=== PATIENT | male | born 1965 | race Caucasian/White ===

== ENCOUNTER 2018-12-09 06:50 | Day surgery (SDC) | payer OTHER, SELFPAY ==
[2018-12-04 10:16] VITALS: BP 124/78; PULSE 70; RESP 18; TEMP 37; BMI 21.5
[2018-12-09 06:57] VITALS: BP 129/76; PULSE 68; RESP 18; TEMP 36.1; O2SAT 100; BMI 20.7
[2018-12-09 07:48] LABS: ALB/GLOB Ratio 1.2 RATIO (0.9-2.4); AST(SGOT) 20 U/L (15-37); Alanine Aminotransfer ALT/SGPT 21 U/L (16-61); Albumin, Serum 4.1 g/dL (3.2-5.0); Alkaline Phosphatase 69 U/L (45-117); Anion Gap 8 (5-15); BUN 10 mg/dL (7-18); BUN/Creat Ratio 10.7 RATIO (10-20); Calcium,Total 8.9 mg/dL (8.5-10.1); Chloride 107 mmol/L (98-107); Cholesterol 185 mg/dL (200); Creatinine, Serum 0.93 mg/dL (0.70-1.30); EST Glomerular Filtration Rate 90 mL/min (>60); Est Glom Filt Rate - Afr Amer 108 mL/min (>60); Estimated Creatinine Clearance 84.47 ml/min; Globulin 3.4 g/dL (2.2-4.2); Glucose 80 mg/dL (74-106); High Density Lipoprotein 85 mg/dL; Potassium 3.6 mmol/L (3.5-5.1); Protein, Total 7.5 g/dL (6.4-8.2); Sodium Level 140 mmol/L (136-145); Triglycerides 171 mg/dL; Very Low Density Lipoprotein 34 mg/dL (5-40)
[2018-12-09 08:12] VITALS: BP 112/75; BP 129/76; PULSE 70; RESP 16; TEMP 36.4; O2SAT 98
--- NOTE | 2018-12-09 08:12 | OP.ENDO_ITS ---
12/09/2018 M[address] Correia [address] [place] [address] Re : Colonoscopy procedure for Chay Gaines Dear Dr. Correia This procedure was performed on Sunday, December 09, 2018. My impressions and recommendations are as follows: Impressions : - The entire examined colon is normal on direct and retroflexion views. - No specimens collected. Recommendations : - Discharge patient to home. - Resume previous diet. - Continue present medications. - Repeat colonoscopy in 10 years for screening purposes. My findings are described in the full procedure note, which is enclosed. If I can be of further assistance, please feel free to contact me at Doctor phone number(s): , Work: . Sincerely, Ronaldo Landaverde MD 12/09/2018 8:12:17 AM This report has been signed electronically.
[2018-12-09 08:15] VITALS: BP 117/77; BP 129/76; PULSE 69; RESP 18; O2SAT 98
[2018-12-09 08:20] VITALS: BP 124/82; BP 129/76; PULSE 72; RESP 18; O2SAT 100
[2018-12-09 08:25] VITALS: BP 125/87; BP 129/76; PULSE 76; RESP 18; TEMP 36.5; O2SAT 100
[2018-12-09 08:28] VITALS: BP 129/76
--- NOTE | 2018-12-10 09:40 | H&P.OPEN ---
History of Present Illness Date of Admission: 12/10/18 The patient is a 53 year old M presented for screening colonoscopy. His last colonoscopy was 10 years ago and no polyps were found. Patient denies any abdominal pain or blood in his stool. Patient denies family history of colon cancer. Past Medical/Surgical History - Planned Operation Planned Operative Procedure/s: colonoscopy Date of Operative Procedure: 12/09/18 Permit Signed: No S.O.S: No Is This Patient Having a Total Joint: No - Previous Hospitalizations/Surgeries HX Hospitalizations: Yes HX of Surgeries: eye trauma as child Any Problems With Anesthesia: No You/Your Family Experience Fever (Hyperthermia) With Anes: No Cholinesterase deficiency: No - Cardiovascular Hx Chest Pain within Last 2 months: No Hx of Irregular Heartbeat and/or Afib: No Hx Heart Attack: No Hx Congestive Heart Failure: No Hx Rheumatic Fever: No Hx Hypertension: No Hx Internal Defibrillator: No Hx Pacemaker: No Hx Cardiac Catheterization: No Hx Cardiac Surgery/Stents/Etc.: No Hx Stress Test: Yes - 2018 HX Edema: No Hx Pain in Legs when Walking/Leg Cramps: No - Respiratory Chronic Cough: No HX of Shortness of Breath: No Hoarseness: No Hx Chronic Obstructive Pulmonary Disease (COPD): No Hx Asthma: No Hx Emphysema: No Hx Sleep Apnea: No Hx Oxygen Use at Home: No Hx Respiratory Tract Infection/Cold (presently): No Do You Snore Loudly (louder than talking or can be heard): No Do You Often Feel Tired/ Fatigued/ Sleepy Dring Daytime?: No Has Anyone Observed You Stop Breathing During Sleep?: No Result (for STOP score): Negative Hx Smoking: Yes Smoking Status: Current every day smoker - Gastrointestinal Hx Gastroesophageal Reflux: No Hx Gastrointestinal Disorders: Yes - diarrhea Hx Gastrointestinal Bleed: No Hx Ulcer: No Hx Hiatal Hernia: No Difficulty Chewing/Swallowing: No Recent Onset of Swallowing Problems: No Special diet followed at home: No Hx Unplanned Weight Loss of 20#: No HX Unplanned Weight Gain of 20#: No - Neurological Hx Seizures: No HX Syncope/Blackout Spells/Unconsciousness: No Hx CVA/Stroke: No Hx Transient Ischemic Attacks (TIA): No Hx Multiple Sclerosis: No Hx Parkinson's Disease: No Hx Head/Neck Injury: No Hx Headaches: No Hx Back Injury/Pain: No Recent Onset of Speech Difficulty: No Restless Legs: No Does patient have nerve stimulator: No Patient instructed to have device shut off: No Rep notified?: No - Blood Disorder Hx Leukemia: No Bleeding Tendencies: No Hx Deep Vein Thrombosis: No Hx High Cholesterol: No Blood Transmitted Disease: No Hx Hepatitis: No Hx Cirrhosis: No Hx Anemia: No Hx Blood Disorders: No - Genitourinary Hx Renal Disease: No - Musculoskeletal Hx Arthritis: Yes Hx Rheumatoid Arthritis: No Hx Gout: No Recent Onset of an Orthopedic Problem: No - Endocrine Hx Diabetes: No Thyroid Disease: No Hx Steroid Therapy: No - Psycho/Social Hx Substance Use: No Hx Alcohol Use: Yes - 6-12 beers a day Hx Anxiety: No Hx Depression: No Mental Illness: No Hx Dementia: No - Miscellaneous Hx Cancer: No Recent Exposure to Contagious Disease: No Active MRSA: No Hx of C-Diff: No Any Loose Teeth: No Allergies No Known Allergies Allergy (Verified 12/04/18 10:15) - Discharge Is Pt Admitted From a Longterm, or a Senior Care: No Who Depends On You At Home: Who Could Help: After D/C, Where Do you Plan to Go: Return Home - Physical Exam General: Alert, Oriented x3 Lungs: Normal air movement Cardiovascular: Regular rate, Regular Rhythm Abdomen: Soft, Non Tender, Non-Distended Vital Signs Temp Pulse Resp BP Pulse Ox 97.7 F L 76 18 125/87 H 100 12/09/18 08:25 12/09/18 08:25 12/09/18 08:25 12/09/18 08:25 12/09/18 08:25 Oxygen Delivery Method Room Air Weight: 145 lb Body Mass Index (BMI) 20.7 Intake and Output for Last 24 Hours 12/08/18 12/09/18 12/10/18 23:59 23:59 23:59 Intake Total 900 / 900 Balance 900 / 900 Assessment/Plan 53-year-old male screening colonoscopy 1. I explained endoscopy in detail to the patient. I explained the risks including but not limited to stroke or heart attack with anesthesia, perforation of the GI tract, bleeding, infection. I explained that any of these could necessitate further emergency surgery. The patient understands and all questions were answered sufficiently. The patient wishes to proceed with procedure. Ronaldo Landaverde MD Pager: [facility] [address] [place] [address], [address] [place] [address] Office: Surgery Risks - Colonoscopy Risks Include but are not Limited To: Risks include but are not limited to: Bleeding, perforation requiring further surgery, inability to complete colonoscopy requiring barium enema.
== END 2018-12-09 08:33 | disposition home or self-care (01) ==
LOC: EN 06:52 → AC 06:54
PROVIDERS: Family Provider Family Medicine; PCP Family Medicine; Referring Provider Surgery; Visit Provider Surgery
PROC: 0DJD8ZZ Inspection of Lower Intestinal Tract, Via Natural or Artificial Opening Endoscopic (ICD-10-PCS; CPT 45378; principal; 2018-12-09 07:40)
DX: Z12.11 Encounter for screening for malignant neoplasm of colon (principal); R19.7 Diarrhea, unspecified; M19.90 Unspecified osteoarthritis, unspecified site; F17.200 Nicotine dependence, unspecified, uncomplicated
CPT/HCPCS: 45378; 36415; 80053; 80061; J7120

== ENCOUNTER 2019-06-01 13:30 | Outpatient (RCR) | payer SELFPAY ==
[2019-04-29 15:33] VITALS: BMI 21.8
--- NOTE | 2019-07-09 09:49 | HP.PT.NRP ---
HP - Discharge Summary (1) - Patient Information ADELITA ISLAS was seen in my office for initial evaluation on . The following Plan of Care was established for this patient: This patient was last seen in our office . Pertinent comments regarding their Physical therapy will appear below: At this point I will be discontinuing this patient from physical therapy. I would be happy to see this patient again in the future if found appropriate by the physician. Thank you! MICHAEL AnthonyT
== END 2019-06-01 19:00 | disposition home or self-care (01) ==
LOC: PT 13:30
PROVIDERS: Family Provider Family Medicine; PCP Family Medicine
DX: R69 Illness, unspecified (principal)

== ENCOUNTER → 2021-04-12 14:48 | Outpatient (CLI) | payer OTHER, SELFPAY ==
[2020-05-10 08:19] VITALS: BMI 21.8
--- NOTE | 2021-04-12 15:01 | CT_ITS ---
STUDY: LOW DOSE CT LUNG CANCER SCREENING REASON FOR EXAM: Male, 55 years old. The patient smoked 1.5 packs per day for 20 years. RADIATION DOSAGE (If Supplied By Facility): CTDIvol = ( 3.02 ) mGy, DLP = ( 104.58 ) mGycm TECHNIQUE: No contrast was administered. Low dose technique was utilized (average mAS-38 and kVp 120). 1.25 mm axial source images with a slice interval of 1.25-mm were reconstructed in lung windows. 2.5 mm axial source images with a slice interval of 2.5-mm were reconstructed in lung windows. 5.0 mm axial source images with a slice interval of 5.0-mm were reconstructed in soft tissue windows. Nodule measured using lung windows on PACS and/or independent workstation with automated measurement of minimum and maximum diameter. Nodule measurement reported as average diameter rounded to the nearest whole number. Growth is defined as an increase ins size of greater than 1.5 mm. COMPARISON: None. NODULES: No suspicious nodules are seen. Emphysema: Emphysematous changes with bullous formation in the upper lobes. Mild bilateral apical scarring. Endobronchial lesion: None Aorta: Mild atherosclerotic plaque at the level of the aortic arch. Coronary arteries: Coronary artery calcification. Heart: Unremarkable. Pulmonary artery: Unremarkable. Mediastinal nodes: Small benign-appearing axillary lymph nodes. Other chest and abdominal findings: CT/Low Dose CT Lung Screening IMPRESSION: Lung-RADS category 2 - Continue annual screening with LDCT in 12 months. IMPORTANT NOTES FOR USE: ACR Lung-RADS Version 1.1 Assessment Categories Release Date: 2018 Category: Coded 0-4 bases on nodule(s) with highest degree of suspicion. Negative screen is defined as categories 1 and 2; a positive screen is defined as categories 3 and 4. Category 3 and 4A nodules that are unchanged on interval CT should be coded as category 2, and individuals returned to screening in 12 months. Category 4X: Category 3 or 4 nodules with additional imaging findings that increase the suspicion of lung cancer, such as spiculation, GGN that doubles in size in 1 year, enlarged lymph notes, etc. Category Modifiers: S (significant finding unrelated to lung cancer) Electronically Signed: Suhail Trent MD at 12:41 EDT , Service support ,
[2021-04-12 16:18] LABS: Absolute Lymphocyte Count 1.62 X10^3/uL (0.83-4.51); Absolute Neutrophil Count 4.3 X10^3/uL (2.0-7.7); Basophil# 0.06 X10^3/uL; Basophil% 0.9 % (0-1); Eosinophil# 0.13 X10^3/uL; Eosinophils% 1.9 % (0-5); Hematocrit 42.7 % (40-54); Hemoglobin 14.2 g/dL (13.0-16.5); Lymphocyte # 1.62 X10^3/ul (0.83-4.51); Mean Corp Hgb Conc 33.3 g/dL (32-36); Mean Corpuscular Hgb 32.5 pg (27.0-32.0); Mean Corpuscular Volume 97.7 fL (80-94); Mean Platelet Vol. 9.4 fl (6.2-12.0); Monocyte# 0.62 X10^3/uL; Monocyte% 9.2 % (0-10); NRBC Flagged by Analyzer 0 % (0-5); Neutrophil # 4.26 X10^3/uL (2.7-7.7); Neutrophil % 63.3 % (47-70); Platelet Count 279 K/mm3 (150-450); RBC Distribution Width CV 13.6 % (11.6-14.6); RBC Distribution Width SD 48.8 fl (35.1-43.9); Red Blood Count 4.37 M/mm3 (4.6-6.2); White Blood Count 6.7 K/mm3 (4.4-11.0)
[2021-04-12 16:31] LABS: ALB/GLOB Ratio 1.1 RATIO (0.9-2.4); AST(SGOT) 18 U/L (15-37); Alanine Aminotransfer ALT/SGPT 20 U/L (16-61); Albumin, Serum 3.6 g/dL (3.2-5.0); Alkaline Phosphatase 73 U/L (45-117); Anion Gap 5 (5-15); BUN 10 mg/dL (7-18); BUN/Creat Ratio 12.8 RATIO (10-20); Calcium,Total 8.4 mg/dL (8.5-10.1); Chloride 109 mmol/L (98-107); Cholesterol 174 mg/dL (200); Creatinine, Serum 0.78 mg/dL (0.70-1.30); EST Glomerular Filtration Rate 109 mL/min (>60); Est Glom Filt Rate - Afr Amer 131 mL/min (>60); Globulin 3.4 g/dL (2.2-4.2); Glucose 93 mg/dL (74-106); High Density Lipoprotein 69 mg/dL; Potassium 4.3 mmol/L (3.5-5.1); Sodium Level 139 mmol/L (136-145); Triglycerides 60 mg/dL; Very Low Density Lipoprotein 12 mg/dL (5-40)
== END ==
PROVIDERS: PCP Family Medicine; Referring Provider Family Medicine; Visit Provider Family Medicine
DX: Z00.00 Encounter for general adult medical examination without abnormal findings (principal); Z12.2 Encounter for screening for malignant neoplasm of respiratory organs; Z13.220 Encounter for screening for lipoid disorders; Z87.891 Personal history of nicotine dependence
CPT/HCPCS: 36415; 71271; 80053; 80061; 85025

== ENCOUNTER → 2022-04-16 | Outpatient (CLI) | payer OTHER, SELFPAY ==
[2022-04-16 18:00] LABS: Hematocrit 44.4 % (40-54); Hemoglobin 14.8 g/dL (13.0-16.5); Mean Corp Hgb Conc 33.3 g/dL (32-36); Mean Corpuscular Volume 98.9 fL (80-94); Mean Platelet Vol. 9.8 fl (6.2-12.0); Platelet Count 297 K/mm3 (150-450); RBC Distribution Width CV 13.6 % (11.6-14.6); RBC Distribution Width SD 49.5 fl (35.1-43.9); Red Blood Count 4.49 M/mm3 (4.6-6.2); White Blood Count 6.2 K/mm3 (4.4-11.0)
[2022-04-16 18:25] LABS: AST(SGOT) 19 U/L (15-37); Alanine Aminotransfer ALT/SGPT 26 U/L (16-61); Albumin, Serum 3.6 g/dL (3.2-5.0); Alkaline Phosphatase 93 U/L (45-117); Anion Gap 6 (5-15); BUN 11 mg/dL (7-18); BUN/Creat Ratio 13.5 RATIO (10-20); Calcium,Total 8.8 mg/dL (8.5-10.1); Chloride 107 mmol/L (98-107); Creatinine, Serum 0.82 mg/dL (0.70-1.30); EST Glomerular Filtration Rate 103 mL/min (>60); Est Glom Filt Rate - Afr Amer 125 mL/min (>60); Globulin 3.6 g/dL (2.2-4.2); Glucose 106 mg/dL (74-106); PSA,Total - Annual Screen 1.06 ng/mL (0.00-4.00); Potassium 4.2 mmol/L (3.5-5.1); Protein, Total 7.2 g/dL (6.4-8.2); Sodium Level 138 mmol/L (136-145)
[2022-04-17 14:30] LABS: Ferritin 123 ng/mL (26-388)
[2022-04-17 14:31] LABS: Vitamin B12 214 pg/mL (211-911)
== END | disposition home or self-care (01) ==
LOC: MFPLAB 15:05
PROVIDERS: PCP Family Medicine; Visit Provider Nurse Practitioner Family
DX: D64.9 Anemia, unspecified (principal); F10.10 Alcohol abuse, uncomplicated; Z12.5 Encounter for screening for malignant neoplasm of prostate
CPT/HCPCS: 84153; 36415; 80053; 82607; 82728; 85027; G0103

== ENCOUNTER → 2022-07-26 | Outpatient (CLI) | payer MEDICAID, SELFPAY ==
--- NOTE | 2022-07-26 17:49 | MRI_ITS ---
STUDY: MRI LEFT HIP REASON FOR EXAM: Male, 56 years old. HIP PAIN TECHNIQUE: Standardized fat and water weighted pulse sequences were obtained in all 3 orthogonal planes. COMPARISON: X-ray 08/06/2021 FINDINGS: Normal hip joint without articular joint space narrowing. Normal acetabulum. Normal labrum. Normal femoral head. Normal femoral neck and intratrochanteric region. Mild gluteal tendinosis and peritendinitis as. There is no trochanteric, iliopsoas or iliopectineal bursitis. Normal superior and inferior pubic rami. Edema about the pubic symphysis consistent with pubic symphysitis. Normal ischial tuberosity. Normal origin of the hamstring tendons. Normal visualized iliac wing, sacroiliac joint, and sacral ala. Normal visualized soft tissue structures of the pelvis. MRI/Lower Ext Joint Only (Routine) IMPRESSION: 1. Mild gluteal tendinosis and peritendinitis as. 2. Pubic symphysitis. Electronically Signed: Chay Alvarado MD at 22:23 EDT ,
== END | disposition home or self-care (01) ==
LOC: MRI 17:41
PROVIDERS: PCP Family Medicine; Referring Provider Anesthesiology Pain Medicine; Visit Provider Anesthesiology Pain Medicine
DX: M16.12 Unilateral primary osteoarthritis, left hip (principal)
CPT/HCPCS: 73721

== ENCOUNTER 2022-09-27 14:30 | Outpatient (RCR) | payer OTHER, SELFPAY ==
--- NOTE | 2022-08-19 15:58 | HP.PTEVAL ---
Patient's Visit Information ADELITA ISLAS is a 57 year old M referred to Physical Therapy by Dr. Polo Dennis MD with a diagnosis of L HIP PAIN AND ABNORMAL GAIT. Date of Evaluation: 08/19/22 Physical Therapist: Dayna Denson PT, Cert MDT - Visit Plan Frequency: 2-3x /Week Duration: 4-6 Weeks Plan: *CHECK AUTH: RECORD # OF VISITS APPROVED AND EXPIRATION DATE. CHECK CODES APPROVED WITH POC*. CORE AND GLUT STRENGTHENING PROGRESSION WITHOUT INCREASING PAIN. LEE LE ROM, STRETCHING AND STRENGTHENING. 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 SOME LIFTING. Present symptoms: L LATERAL HIP AND PROXIMAL THIGH PAIN. DENIES L LE NUMBNESS AND TINGLING FOR THE LAST FEW WEEKS. SOMETIMES R HIP HURTS TOO WHICH STARTED ABOUT A WK AGO AND DR. SUAREZ IS AWARE AND PATIENT STATES DR. SUAREZ FEELS THE RIGHT SIDE STARTED HURTING DUE TO COMPENSATING FOR THE LEFT HIP PAIN. PATIENT REPORTS BOTH HIPS DON'T USUALLY HURT AT THE SAME TIME - ONE OR THE OTHER HURT. Present since: A YEAR AGO. Pain Scale: WORST 8/10 (BRIEF AND FLEETING), LEAST 1-2/10. Currently: 4/10. Is it getting better, worse or staying the same: STAYING THE SAME. Commenced as a result of: NO APPARENT REASON OTHER THAN POSSIBLY FROM LIFTING A MACHINE. STARTED HURTING A DAY OR TWO LATER. Symptoms at onset: L LATERAL HIP. Worse: QUICK LATERAL MOVE WITH LLE TO THE LEFT, ROLLING OVER SLEEPING. SOMETIMES GETTING IN/OUT OF CAR. SITTING ON THE COUCH. Better: PAIN MEDICINE (RELAFEN - STARTED ABOUT A WK AGO), WALKING STRAIGHT - BETTER ON THE MOVE. HEAT. Disturbed sleep: YES. Previous history/Previous treatment: UNREMARKABLE PRIOR TO THIS ONSET ABOUT A YEAR AGO. Treatment this episode: MEDICINE, [facility] 4 OR 5 TIMES AGO A FEW MONTHS AGO WITH TEMPORARY RELIEF. CONSULT WITH DR. KENDRICK - WAS GIVEN HOME EX'S THEY NEVER REALLY FELT GOOD. PAIN DIDN'T GO AWAY SO WENT TO [facility] AND NOW DR. SUAREZ. HAS SEEN DR. SUAREZ TWICE IN THE LAST 6-[address] SUAREZ DID NOT RECOMMEND INJECTION AND ORDERED PT. DR. SUAREZ ALSO ORDERED MRI. HAS NOT HAD SPINE SURGEON CONSULT OR BACK IMAGING (NO BACK MRI OR BACK X-RAY). TRIED STEROID DOSE PACK ORDERED BY DR. SUAREZ WITHOUT BENEFIT PER PATIENT REPORT. CURRENT ANTI-INFLAMMATORY DOES SEEM TO BE HELPING THOUGH. Coughing/sneezing/straining: NEGATIVE. Gait: JUST A LITTLE BIT LIMPING. THE MORE I WALK THE BETTER IT FEELS. Bowel or Bladder Dysfunction: NO. Accidents: NO. Unexplained weight loss: NO. Imagin07/26/22 L HIP MRI ([facility] EMR): IMPRESSION: 1. Mild gluteal tendinosis and peritendinitis as. 2. Pubic symphysitis. PELVIC AND L HIP X-RAY 2020: STUDY: X-RAY - PELVIS AND LEFT HIP. REASON FOR EXAM: Male, 55 years old. LEFT HIP PAIN, NKI RADIATES DOWN. LEG. TECHNIQUE: XR Hip Unilateral with Pelvis when performed; 2-3 Views. COMPARISON: None. . FINDINGS: There is a non-specific bowel gas pattern. Normal visualized soft tissue. structures. Normal bilateral iliac wings, sacroiliac joints and visualized sacrum. Normal bilateral superior and inferior pubic rami. Normal pubic symphysis. Normal bilateral ischial tuberosities. There are osteoarthritic changes of the femoral head with marginal. osteophyte formation. There is osteoarthritic spur formation of the. acetabular rim. There is mild articular joint space narrowing of the hip. . RAD/HIP, UNI W/ Pelvis 2-3 Views. IMPRESSION: Degenerative findings of both hips. . Electronically Signed: Sabas Capps MD. at 14:25 EST. . PMH/Recent major surgery: OTHERWISE IN [facility]. - Objective Sitting/Standing Posture: POOR. REDUCED LORDOSIS. NO RELEVENT LATERAL SHIFT. Active Correction of posture: BETTER. Other Observations: Trendelenburg Gait. Indep without AD and no LOB. INDEP TRANSFER SIT TO STAND WITHOUT UE ASSIST FAVORING R LE AND WITH MILD INCREASED L HIP PAIN. C/O L HIP PAIN TRANSFERES SIT TO SUPINE, SUPINE TO SIT AND ROLLING SUPINE TO PRONE. TIGHT LEE QUADS. Sensory deficit: LEE LE LIGHT TOUCH SENSATION GROSSLY INTACT AND SYMMETRICAL. ROM deficit: LEFT HIP IR TIGHTNESS COMPARED TO RIGHT AND PAIN AT THE END OF THE AVAILABLE ROM. APPROX 50% DECREASED L HIP ABD COMPARED TO RIGHT. TIGHT LEE HS'S AND GASTROC SOLEUS COMPLEX'S. Motor deficit: RIGHT LE 5/5. L HIP EXT 4/5, FLEX 4/5, L HIP ABD 4-/5. L KNEE AND ANKLE 5/5. Dural Signs: NEGATIVE LEE LE'S. Lumbar mvmt loss: flex - NIL. ext - LYNDSEY - INCREASES L LB/HIP PAIN. R SG - LYNDSEY. L SG - LYNDSEY - INCREASES L LB/HIP PAIN. Core strength: FAIR. Palpation: MILD L GLUT TENDERNESS. TREATMENT: NEUROMUSCULAR REEDUCATION - RETRAINING OF MVMT AND POSTURE FOR SITTING, LYING AND STANDING ACTIVITIES. - Balance/Special Test Scores Lower Extremity Functional Score: 51 - Goals Goal 1:: DECREASE C/O L HIP PAIN Goal Time Frame: 4-6 Weeks Goal 2:: INCREASE FUNCTIONAL ROM OF LEE LE'S TO EASE ADL'S. Goal Time Frame: 4-6 Weeks Goal 3:: INCREASE FUNCTIONAL STRENGTH OF L HIP TO ALLOW FOR RETURN TO PRIOR LEVEL OF FUNCTION. Goal Time Frame: 4-6 Weeks Goal 4:: PATIENT WILL BE INDEP WITH A HEP FOR CONTINUED IMPROVEMENT ONCE FORMAL PHYSICAL THERAPY CONCLUDES. Goal Time Frame: 6-8 Weeks - Anticipated Interventions Patient/Client Instruction: Educate patient on: Condition, Plan of Care, Risk Factors For the Purpose of:: To improve self management Therapeutic Exercise to Include: Strength training, Endurance training, Balance training, Body mechanics, Postural training, Flexibilty training, Gait and locomotor training, Neuromotor development For the Purpose of:: To decrease pain, To increase ROM, To improve muscle performance and motor function, To improve ability of physical actions for home/community/work/leisure, To improve gait and locomotor functions Thank you for the opportunity to evaluate your patient. For Medicare and Medicare HMO plans, please review the plan of care and approve it. It will need to be FAXED BACK to us at [phone] for Medicare purposes. For Medicare only, by signing this I certify the plan of care. Please let me know if there are questions or concerns regarding this plan of care. Physician Signature: Date:
--- NOTE | 2022-09-27 15:02 | HP.PTREVAL ---
Dr. Polo Dennis MD, It has been my pleasure to treat ADELITA ISLAS over the last 9 visits for L HIP PAIN AND ABNORMAL GAIT. Please see the progress note below for an update on the physical therapy plan of care! Subjective: PATIENT REPORTS HE STILL GETS L HIP PAIN WHEN HE MOVES WRONG UP TO 04/07. 10/08 L HIP PAIN AT BEST. HE REPORTS HE WAS GETTING BETTER IN THE BEGINNING BUT IT IS NOT CONTINUING TO IMPROVE. PATIENT REPORTS HE FEELS BETTER AFTER HIS EX'S AND HE PLANS TO CONTINUE HIS HEP AND FOLLOW UP WITH DR. SUAREZ. NO LONGER HAVING PAIN WHEN HE ROLLS OVER IN BED. STATES HE CAN CONTINUE HIS EX'S AT HOME NOW. Objective/Function: PATIENT WAS SEEN TODAY FOR RE-ASSESSMENT OF PROGRESS TOWARD THE SET PT GOALS AND THE NEED FOR FURTHER PHYSICAL THERAPY VS READINESS FOR DISCHARGE. UPON EXAM TODAY: Still demo's Trendelenburg Gait but improved since initial eval. Indep without AD and no LOB. INDEP TRANSFER SIT TO STAND WITH even LE weight bearing and no c/o hip pain with transfer today. Also denies pain with sit to supine and reverse transfer today. TIGHT LEE QUADS. ROM deficit: LEFT HIP IR TIGHTNESS COMPARED TO RIGHT AND PAIN AT THE END OF THE AVAILABLE ROM. APPROX 25% DECREASED L HIP ABD COMPARED TO RIGHT. TIGHT LEE HS'S AND GASTROC SOLEUS COMPLEX'S. Motor deficit: RIGHT LE 5/5. L HIP EXT 4/5, FLEX 5/5, L HIP ABD 5/5. L KNEE AND ANKLE 5/5. Dural Signs: NEGATIVE LEE LE'S. Lumbar mvmt loss: flex - NIL. ext - MOD - INCREASES L HIP PAIN. R SG - LYNDSEY. L SG - LYNDSEY. OTHER: POSITIVE L PEDRO LUIS TEST. Palpation: NO ACUTE TENDERNESS - EVEN IN L GLUT TODAY. Plan Plan: D/C TO HEP AND FOLLOW UP WITH DR. SUAREZ FOR ONGOING PAIN. PATIENT AGREEABLE. Balance/Gait/Functional tests - Balance/Special Test Scores Lower Extremity Functional Score: 61 Goals Goal 1:: DECREASE C/O L HIP PAIN Goal Time Frame: 4-6 Weeks Goal Progress: Progressing Goal 2:: INCREASE FUNCTIONAL ROM OF LEE LE'S TO EASE ADL'S. Goal Time Frame: 4-6 Weeks Goal Progress: Progressing Goal 3:: INCREASE FUNCTIONAL STRENGTH OF L HIP TO ALLOW FOR RETURN TO PRIOR LEVEL OF FUNCTION. Goal Time Frame: 4-6 Weeks Goal Progress: Progressing Goal 4:: PATIENT WILL BE INDEP WITH A HEP FOR CONTINUED IMPROVEMENT ONCE FORMAL PHYSICAL THERAPY CONCLUDES. Goal Time Frame: 6-8 Weeks Goal Progress: Progressing Anticipated Interventions Patient/Client Instruction: Educate patient on: Condition, Plan of Care, Risk Factors For the Purpose of:: To improve self management Therapeutic Exercise to Include: Strength training, Endurance training, Balance training, Body mechanics, Postural training, Flexibilty training, Gait and locomotor training, Neuromotor development For the Purpose of:: To decrease pain, To increase ROM, To improve muscle performance and motor function, To improve ability of physical actions for home/community/work/leisure, To improve gait and locomotor functions Please do not hesitate to contact me at [phone] by phone or if you have questions or concerns regarding this new plan of care! Sincerely, Dayna Denson, PT, Cert MDT
--- NOTE | 2022-12-26 11:15 | HP.PTDCSUM_ITS ---
It has been my pleasure to treat ADELITA ISLAS referred by Dr. Polo Dennis MD, with the diagnosis of L HIP PAIN AND ABNORMAL GAIT for a total of 9 visit(s). Discharge Date: Please see the following information for a summary of their discharge status. Subjective: PATIENT REPORTS HE STILL GETS L HIP PAIN WHEN HE MOVES WRONG UP TO 04/07. 10/08 L HIP PAIN AT BEST. HE REPORTS HE WAS GETTING BETTER IN THE BEGINNING BUT IT IS NOT CONTINUING TO IMPROVE. PATIENT REPORTS HE FEELS BETTER AFTER HIS EX'S AND HE PLANS TO CONTINUE HIS HEP AND FOLLOW UP WITH DR. SUAREZ. NO LONGER HAVING PAIN WHEN HE ROLLS OVER IN BED. STATES HE CAN CONTINUE HIS EX'S AT HOME NOW. L HIP Pain Intensity (Out of 10): 2 % Improvement: 50 Objective/Function: PATIENT WAS SEEN TODAY FOR RE-ASSESSMENT OF PROGRESS TOWARD THE SET PT GOALS AND THE NEED FOR FURTHER PHYSICAL THERAPY VS READINESS FOR DI SCHARJAYLON. UPON EXAM TODAY: Still demo's Trendelenburg Gait but improved since initial eval. Indep without AD and no LOB. INDEP TRANSFER SIT TO STAND WITH even LE weight bearing and no c/o hip pain with transfer today. Also denies pain with sit to supine and reverse transfer today. TIGHT LEE QUADS. ROM deficit: LEFT HIP IR TIGHTNESS COMPARED TO RIGHT AND PAIN AT THE END OF THE AVAILABLE ROM. APPROX 25% DECREASED L HIP ABD COMPARED TO RIGHT. TIGHT LEE HS'S AND GASTROC SOLEUS COMPLEX'S. Motor deficit: RIGHT LE 5/5. L HIP EXT 4/5, FLEX 5/5, L HIP ABD 5/5. L KNEE AND ANKLE 5/5. Dural Signs: NEGATIVE LEE LE'S. Lumbar mvmt loss: flex - NIL. ext - MOD - INCREASES L HIP PAIN. R SG - LYNDSEY. L SG - LYNDSEY. OTHER: POSITIVE L PEDRO LUIS TEST. Palpation: NO ACUTE TENDERNESS - EVEN IN L GLUT TODAY. Goal 1:: DECREASE C/O L HIP PAIN Goal Progress: Progressing Goal 2:: INCREASE FUNCTIONAL ROM OF LEE LE'S TO EASE ADL'S. Goal Progress: Progressing Goal 3:: INCREASE FUNCTIONAL STRENGTH OF L HIP TO ALLOW FOR RETURN TO PRIOR LEVEL OF FUNCTION. Goal Progress: Progressing Goal 4:: PATIENT WILL BE INDEP WITH A HEP FOR CONTINUED IMPROVEMENT ONCE FORMAL PHYSICAL THERAPY CONCLUDES. Goal Progress: Progressing Plan: D/C TO HEP AND FOLLOW UP WITH DR. SUAREZ FOR ONGOING PAIN. PATIENT AGREEABLE. If there are questions or concerns regarding this patient's physical therapy, please feel free to call me at [phone]. Thank you for the referral of this patient. Sincerely, Dayna Denson, PT, Cert MDT Balance/Gait/Functional tests - Balance/Special Test Scores Lower Extremity Functional Score: 61
== END 2022-09-27 19:00 | disposition home or self-care (01) ==
LOC: PT 14:30
PROVIDERS: PCP Family Medicine; Referring Provider Anesthesiology Pain Medicine; Visit Provider Anesthesiology Pain Medicine
DX: R26.89 Other abnormalities of gait and mobility (principal); M76.02 Gluteal tendinitis, left hip
CPT/HCPCS: 97110; 97112; 97162; 97164

== ENCOUNTER 2023-06-24 15:26 | Outpatient (CLI) | payer SELFPAY ==
[2023-06-24 17:35] LABS: Absolute Neutrophil Count 7.4 X10^3/uL (2.0-7.7); Basophil# 0.05 X10^3/uL; Basophil% 0.5 % (0-1); Eosinophil# 0.21 X10^3/uL; Eosinophils% 2.1 % (0-5); Hematocrit 43.7 % (40-54); Hemoglobin 14.6 g/dL (13.0-16.5); Lymphocyte % 15.1 % (19-41); Mean Corp Hgb Conc 33.4 g/dL (32-36); Mean Corpuscular Hgb 33.3 pg (27.0-32.0); Mean Corpuscular Volume 99.5 fL (80-94); Mean Platelet Vol. 9.3 fl (6.2-12.0); Monocyte# 0.77 X10^3/uL; Monocyte% 7.7 % (0-10); NRBC Flagged by Analyzer 0 % (0-5); Neutrophil # 7.37 X10^3/uL (2.7-7.7); Platelet Count 351 K/mm3 (150-450); RBC Distribution Width CV 13.1 % (11.6-14.6); RBC Distribution Width SD 48.4 fl (35.1-43.9); Red Blood Count 4.39 M/mm3 (4.6-6.2)
[2023-06-24 18:19] LABS: Vitamin B12 333 pg/mL (211-911); Vitamin D,25 Hydroxy 67.7 ng/mL
[2023-06-24 18:25] LABS: AST(SGOT) 17 U/L (15-37); Alanine Aminotransfer ALT/SGPT 23 U/L (16-61); Albumin, Serum 3.5 g/dL (3.2-5.0); Alkaline Phosphatase 83 U/L (45-117); Anion Gap 1 (5-15); BUN 7 mg/dL (7-18); BUN/Creat Ratio 9.1 RATIO (10-20); Calcium,Total 8.7 mg/dL (8.5-10.1); Chloride 108 mmol/L (98-107); Creatinine, Serum 0.77 mg/dL (0.70-1.30); EST Glomerular Filtration Rate 110 mL/min (>60); Est Glom Filt Rate - Afr Amer 132 mL/min (>60); Globulin 3.6 g/dL (2.2-4.2); Glucose 107 mg/dL (74-106); Potassium 4.7 mmol/L (3.5-5.1); Protein, Total 7.1 g/dL (6.4-8.2); Sodium Level 135 mmol/L (136-145); Thyroid Stim Hormone (TSH) 1.23 uIU/mL (0.358-3.74)
== END 2023-06-24 23:59 | disposition home or self-care (01) ==
LOC: MFPLAB 15:31
PROVIDERS: PCP Family Medicine; Visit Provider Family Medicine
DX: D64.9 Anemia, unspecified (principal); R19.7 Diarrhea, unspecified; Z12.5 Encounter for screening for malignant neoplasm of prostate; N52.9 Male erectile dysfunction, unspecified; E53.8 Deficiency of other specified B group vitamins
CPT/HCPCS: 36415; 80053; 82306; 82607; 82746; 84443; 85025

== ENCOUNTER → 2023-07-16 | Outpatient (CLI) | payer SELFPAY ==
--- NOTE | 2023-07-16 14:58 | CT_ITS ---
STUDY: LOW DOSE CT LUNG CANCER SCREENING REASON FOR EXAM: Male, 57 years old. 1.5 pack per day smoker x20 years RADIATION DOSAGE (If Supplied By Facility): CTDIvol = ( 2.01 ) mGy, DLP = ( 75.75 ) mGycm TECHNIQUE: No contrast was administered. Low dose technique was utilized (average mAS-38 and kVp 120). 1.25 mm axial source images with a slice interval of 1.25-mm were reconstructed in lung windows. 2.5 mm axial source images with a slice interval of 2.5-mm were reconstructed in lung windows. 5.0 mm axial source images with a slice interval of 5.0-mm were reconstructed in soft tissue windows. COMPARISON: 04/12/2021 FINDNGS: Lung windows show underlying emphysema with bleb formation in both upper lobes. Chronic interstitial changes noted in both lung waite without organizing infiltrate, effusion, or suspicious noncalcified mass or nodule. Limited soft tissue windows show normal-appearing thyroid gland. No suspicious adenopathy. Normal tapering of the thoracic aorta. There are calcified coronary vessels. Degenerative bony changes noted. Limited cuts through the upper abdomen do not show any suspicious abnormality. CT/Low Dose CT Lung Screening IMPRESSION: Lung-RADS category 2 - Continue annual screening with LDCT in 12 months. IMPORTANT NOTES FOR USE: ACR Lung-RADS Version 1.1 Assessment Categories Release Date: 2018 Category: Coded 0-4 bases on nodule(s) with highest degree of suspicion. Negative screen is defined as categories 1 and 2; a positive screen is defined as categories 3 and 4. Category 3 and 4A nodules that are unchanged on interval CT should be coded as category 2, and individuals returned to screening in 12 months. Category 4X: Category 3 or 4 nodules with additional imaging findings that increase the suspicion of lung cancer, such as spiculation, GGN that doubles in size in 1 year, enlarged lymph notes, etc. Category Modifiers: S (significant finding unrelated to lung cancer) Electronically Signed: Carlos Garcia MD at 21:19 EDT ,
== END | disposition home or self-care (01) ==
LOC: CT 14:56
PROVIDERS: PCP Family Medicine; Referring Provider Family Medicine; Visit Provider Family Medicine
DX: F17.200 Nicotine dependence, unspecified, uncomplicated (principal)
CPT/HCPCS: 71271

== ENCOUNTER 2023-09-03 15:08 | Outpatient (RCR) | payer SELFPAY ==
--- NOTE | 2024-01-06 10:08 | HP.PT.NRP ---
Patient Information Patient Information: ADELITA ISLAS was seen in my office for initial evaluation on . The following Plan of Care was established for this patient: Last Seen Last Seen: This patient was last seen in our office 09/03/23. Pertinent comments regarding their Physical therapy will appear below: Pt. was seen for self pay DN. He was seen for 1 visit and has not been seen in a few months. Pt. will be DC at this point in time. At this point I will be discontinuing this patient from physical therapy. I would be happy to see this patient again in the future if found appropriate by the physician. Thank you! MICHAEL CookT
== END 2023-09-03 19:00 | disposition home or self-care (01) ==
LOC: PT 15:08
PROVIDERS: PCP Family Medicine
DX: M25.519 Pain in unspecified shoulder (principal)

== ENCOUNTER → 2024-01-02 | Outpatient (CLI) | payer SELFPAY ==
[2024-01-02 17:28] LABS: Absolute Lymphocyte Count 1.56 X10^3/uL (0.83-4.51); Absolute Neutrophil Count 5.6 X10^3/uL (2.0-7.7); Basophil# 0.06 X10^3/uL; Basophil% 0.8 % (0-1); Eosinophil# 0.12 X10^3/uL; Eosinophils% 1.5 % (0-5); Hematocrit 40.5 % (40-54); Hemoglobin 13.6 g/dL (13.0-16.5); Lymphocyte # 1.56 X10^3/ul (0.83-4.51); Lymphocyte % 19.7 % (19-41); Mean Corp Hgb Conc 33.6 g/dL (32-36); Mean Corpuscular Volume 98.3 fL (80-94); Mean Platelet Vol. 9.4 fl (6.2-12.0); Monocyte# 0.57 X10^3/uL; Monocyte% 7.2 % (0-10); NRBC Flagged by Analyzer 0 % (0-5); Neutrophil # 5.55 X10^3/uL (2.7-7.7); Neutrophil % 70.2 % (47-70); Platelet Count 379 K/mm3 (150-450); RBC Distribution Width CV 13.3 % (11.6-14.6); RBC Distribution Width SD 48.4 fl (35.1-43.9); Red Blood Count 4.12 M/mm3 (4.6-6.2); White Blood Count 7.9 K/mm3 (4.4-11.0)
[2024-01-02 17:47] LABS: Vitamin B12 280 pg/mL (211-911)
[2024-01-02 18:05] LABS: AST(SGOT) 24 U/L (15-37); Alanine Aminotransfer ALT/SGPT 25 U/L (16-61); Albumin, Serum 3.3 g/dL (3.2-5.0); Alkaline Phosphatase 86 U/L (45-117); Anion Gap 6 (5-15); BUN 10 mg/dL (7-18); BUN/Creat Ratio 13.2 RATIO (10-20); Calcium,Total 8.4 mg/dL (8.5-10.1); Chloride 108 mmol/L (98-107); Creatinine, Serum 0.76 mg/dL (0.70-1.30); EST Glomerular Filtration Rate 112 mL/min (>60); Est Glom Filt Rate - Afr Amer 135 mL/min (>60); Ferritin 80 ng/mL (26-388); Globulin 3.3 g/dL (2.2-4.2); Glucose 92 mg/dL (74-106); Potassium 4.5 mmol/L (3.5-5.1); Protein, Total 6.6 g/dL (6.4-8.2); Sodium Level 139 mmol/L (136-145)
== END | disposition home or self-care (01) ==
LOC: MTLAB 15:42
PROVIDERS: PCP Family Medicine; Referring Provider Family Medicine; Visit Provider Family Medicine
DX: D64.9 Anemia, unspecified (principal); K62.5 Hemorrhage of anus and rectum
CPT/HCPCS: 36415; 80053; 82607; 82728; 82746; 85025

== ENCOUNTER 2024-01-22 15:38 | Outpatient (RCR) | payer SELFPAY | END 2024-01-22 19:00 | disposition home or self-care (01) | LOC: PT 15:38 | PROVIDERS: PCP Family Medicine | DX: Z00.00 Encounter for general adult medical examination without abnormal findings (principal) ==

== ENCOUNTER 2024-07-29 13:00 | Outpatient (RCR) | payer SELFPAY ==
[2024-07-21 13:30] VITALS: BP 164/87; PULSE 83; RESP 20; TEMP 36.7; BMI 23.1
--- NOTE | 2024-07-21 17:26 | PCM.WC.HP ---
History of Present Illness Date of Service: 07/21/24 Chief Complaint: Left medial foot ulcer, just distal to ankle. History of Wound: 58-year-old male presents with a nonhealing ulcer to his left medial foot, distal to his ankle. This started 5 to 6 weeks ago. He states that it started as a small wound and then got larger. He went to his PCP who started him on Levaquin. Once on the Levaquin he states that the wound is starting to not drain as much and looks better. His PCP is started him on a second round of the Levaquin and referred him to the wound healing center. He denies being diabetic or any medical history. He does smoke 1 to 1-1/2 packs/day for the past 30+ years. Progress of Wound: Left medial foot ulcer with a skin island of granulation tissue present in the center of it. There is pink granulation tissue. He has been on Levaquin for the past 10 days, with improvement in his wound. Will order arterial and venous studies. [facility] Medical History (Updated 07/24/24 @ 23:05 by Jackie Spence NP, OFFICE SYSTEM ANALYST-C) Hemorrhoids Home Medications ?Medication ?Instructions ?Recorded ?Last Taken ?Type etodolac 500 mg tablet 500 mg PO BID #60 tabs 08/06/21 Unknown Rx levofloxacin 500 mg tablet 500 mg PO DAILY 07/21/24 Unknown History Allergy/AdvReac Type Severity Reaction Status Date / Time No Known Allergies Allergy Verified 07/21/24 13:48 Family History Mother Hypertension Father CVA (cerebral vascular accident) Surgical History History of colonoscopy (~11/2018) Social History Smoking Status: Current every day smoker ROS Constitutional Constitutional: Denies chills or fever(s) Eyes Eyes: Reports requires corrective lenses ENT HEENT: Reports none Cardiovascular Cardiovascular: Denies chest pain, dyspnea or edema Respiratory/Chest Respiratory/Chest: Denies dyspnea Gastrointestinal Gastrointestinal: Reports none Genitourinary Genitourinary: Reports none Musculoskeletal Musculoskeletal: Reports back pain Integumentary Integumentary: Reports as per HPI Neurologic Neurologic: Reports none Psychiatric Psychiatric: Reports none Endocrine Endocrinology: Reports none Hematologic/Lymphatic Hematologic/Lymphatic: Reports none Vital Signs Vital Signs Vital Signs: 07/21/24 13:30 Temperature 98.1 F Temperature Source Temporal Pulse Rate 83 Respiratory Rate 20 H Blood Pressure 164/87 H Blood Pressure Mean 112 Blood Pressure Source Monitor Weight Weight: 160 lb 11.834 oz Body Mass Index (BMI) 23.1 Physical Exam Const alert and oriented x3 General Appearance: cooperative HEENT normocephalic Head and Scalp: atraumatic Eyes General Eye: normal appearance of both eyes Neck full ROM Lymph Lymphatic: no lymphedema noted Resp normal respiratory effort, normal air movement and clear to auscultation bilaterally Effort and Inspection: able to speak in complete sentences Cardio regular rate and regular rhythm GI normal to inspection, nondistended, normoactive bowel sounds Back/Spine normal ROM Extremity full ROM and normal capillary refill Skin Wound Narrative: Left medial foot ulcer with a skin island of granulation tissue present in the center of it. There is pink granulation tissue Neuro oriented x3 and CN's II-XII intact bilaterally Psych mental status grossly normal and thought process normal Debridement Note Debridement Note Wound debrided: medial foot ulcer Laterality: Left Wound Grade/Stage: Stage III Type of Debridement: Excisional debridement Anesthesia Used: 5% Lidocaine Gel Depth: Down to and including healthy tissue and in the subcutaneous layer Percentage of wound debrided: 100 Instrument Used: 3mm curette Tissue Removed: nonviable tissue and slough Severity: Fat Layer Exposed Amount of bleeding with debridement: Mild Bleeding Controlled with: Pressure and Compression and gauze Patient tolerated procedure: Patient tolerated procedure well Post-Debridement Measurements and Additional Note: Post-Debridement Measurements/Treatment - Nurse 1 - General Ulcer Assessment Start: 07/21/24 13:30 Freq: Status: Active Protocol: GABRIELLE Activity Type Activity Date Activity User E-sign Co-sign Detail Recorded Client Recorded Date Recorded By Document 07/21/24 13:30 DL [id number] 07/21/24 13:46 DL 07/21/24 13:30 - Today's Visit Information Type of service Initial Visit Arrival Mode Ambulatory Transfer Assistance None Patient Identification Verified (Name & Yes ) Patient Requires Transmission-Based No Precautions Height and Weight Height 5 ft 10 in Weight 160 lb 11.834 oz Weight in Pounds 160.7 lbs Weight Measurement Method Estimated by Patient Body Mass Index (BMI) 23.1 BMI Classification Normal BSA - Tru 1.90 Vital Signs Temperature (97.8 F-99.1 F) 98.1 F Temperature Source Temporal Pulse Rate (60-100) 83 Pulse Location Monitor Respiratory Rate (12-18) 20 H Respiratory rate source Observation Blood Pressure (90/60-120/80) 164/87 H Blood Pressure Mean 112 Source Monitor Pain Scale: 0-10 Numeric Is Patient Pain Free? Yes Lower Extremity Assessment/ Foot Assessment/ Toe Nail Assessment Left -Posterior Tibial Palpable Yes -Posterior Tibial Doppler Multiphasic -Dorsalis Pedis Palpable Yes -Dorsalis Pedis Doppler Multiphasic -Extremity Color Normal -Hair Growth on Legs Yes -Hair Growth on Toes Yes -Temperature of Extremity Warm -Capillary Refill Greater than 3 Seconds -Dependent Rubor No -Blanched when Elevated No -Lipodermatosclerosis No -Other Deformity No -Prior Foot Ulcer No -Charcot Joint No -Prior Amputation No -Thick No -Discolored No -Deformed No -Improper Length & Hygeine No Right -Popliteal Doppler Multiphasic -Posterior Tibial Palpable Yes -Posterior Tibial Doppler Multiphasic -Dorsalis Pedis Palpable Yes -Dorsalis Pedis Doppler Multiphasic -Extremity Color Normal -Hair Growth on Legs Yes -Hair Growth on Toes Yes -Temperature of Extremity Warm -Capillary Refill Greater than 3 Seconds -Dependent Rubor No -Blanched when Elevated No -Lipodermatosclerosis No -Other Deformity No -Prior Foot Ulcer No -Charcot Joint No -Prior Amputation No -Thick No -Discolored No -Deformed No -Improper Length & Hygeine No Neuropathy Assessment Feet - Top Side and Bottom <Entered> (a) Communication Assessment Preferred language Khmer Right Hearing Abillity Normal Left Hearing Abillity Normal Visual Assistive Devices Glasses Teaching Assessment Preferences Verbal,Written Readiness To Learn Good Willingness to Engage in Self Management Med Activies Readiness to Engage in Self Management Med Activities Anxiety Level Calm Cooperation Cooperative Perception Coherent Interest in Health Problem Asks Questions Education Importance Acknowledges Need Does Patient Smoke tobacco or other Yes substances Smoking Status Current every day smoker Is Patient Diabetic No Functional Assessment Recent Decline in Ability to Perform Denies Any Declines Culture/Episcopal/Oil Tank Car Cleaner Cultural/Episcopal Needs that may affect No Treatment Plan Would you allow our hospital retort loader to No meet you for the purpose of spiritual/ emotional support? Oil Tank Car Cleaner to contact place of taoist No Teaching: Wound Center Dressing Your Wound -Person Taught Patient *Welcome to the Wound Center -Person Taught Patient (a) 1 - + WC - Nurse 1 - General Ulcer Measurement Start: 07/21/24 13:30 Freq: Status: Active Protocol: Activity Type Activity Date Activity User E-sign Co-sign Detail Recorded Client Recorded Date Recorded By Document 07/21/24 13:30 DL [id number] 07/21/24 13:46 DL 07/21/24 13:30 Wound Center Nurse 1 #1 L med heel -Current Size (cm) - Length 1.9 -Current Size (cm) - Width 1.9 -Current Size (cm) - Depth 0.1 -Total Square Cm 3.61 -Photo Taken Yes -Exudate Amt Medium -Exudate Type Serosanguineous -Wound Margin Distinct, Outline Attached -Granulation Amt Medium (34-66%) -Granulation Quality Red -Necrosis Amt Medium (34-66%) -Necrotic Tissue Type Adherent Slough -Structure Exposed N/A -Texture (Estrellita-wound Skin Appearance) Scarring -Moisture (Estrellita-wound Skin Appearance) No Abnormality -Color (Estrellita-wound Skin Appearance) No Abnormality -Temperature (Estrellita-wound Skin No Abnormality Appearance) (Pt Warm) -Tenderness on Palpation (Estrellita-wound No Skin Appearance) -Ulcer Cleansing Soap and Water -Foul Odor after Cleansing No -Anesthetic Used 5% Lidocaine Gel WC - Nurse 2 - General Ulcer CM Notes Start: 07/21/24 13:30 Freq: Status: Active Protocol: Activity Type Activity Date Activity User E-sign Co-sign Detail Recorded Client Recorded Date Recorded By Document 07/21/24 14:54 GM [id number] 07/21/24 15:08 GM 07/21/24 14:54 Wound Center Nurse 2 -Time 14:54 -Correct Patient Yes -Correct Side, Site, Position Yes -Correct Procedure Yes -Procedure Performed Yes -Type of Procedure Debridement -Clinical Debridement Subcutaneous -Tissue Removed Subcutaneous -Post Debridement (cm) - Length 1.8 -Post Debridement (cm) - Width 2.2 -Post Debridement (cm) - Depth 0.1 -Total Square (Post) (cm) 3.96 -Area of Debridement (cm) - Length 1.8 -Area of Debridement (cm) - Width 2.2 -Total Square (Area) (cm) 3.96 -Tunneling No -Undermining/Tunneling No -Circular Undermining No -Wound/Ulcer Outcome Not Healed -Ulcer Cleansing Rinsed/ Irrigated with Saline -Foul Odor after Cleansing No -Bioengineered Tissue No -Bleeding Controlled with Pressure -Treatment Response Procedure Tolerated Well -Debridement - Subq, 1st 20sq cm Yes Pain Scale: 0-10 Numeric Is Patient Pain Free? Yes - Nurse 3 - General Ulcer D/C NN Start: 07/21/24 13:30 Freq: Status: Active Protocol: Activity Type Activity Date Activity User E-sign Co-sign Detail Recorded Client Recorded Date Recorded By Document 07/21/24 15:17 [id number] 07/21/24 15:18 07/21/24 15:17 Wound Care Center Nurse 3 #1 L med heel -Ulcer Cleansing Not Cleansed -Foul Odor after Cleansing No -Primary Dressing Applied Promogran Germain Matter -Primary Dressing Covered/Secured with Dry Gauze & Roll Gauze, Secured with Tape -Promogran Germain Matter 2 Pain Scale: 0-10 Numeric Is Patient Pain Free? Yes WC - Visit Discharge Discharge Condition Stable Ambulatory Status Ambulatory Transportation Private Auto Charges/Coding Visit Charges Office Visits / Consults: 49564 OV L3 Est 20min (25 modifier) Procedures Integumentary 111xxx-113xx: [id number] Coretta subq tissue 20 sq cm/< Assessment/Plan Assessment/Plan (1) Ulcer of left ankle: CODE(S): L97.329 - Non-pressure chronic ulcer of left ankle with unspecified severity QUALIFIERS: Non-pressure ulcer stage: with fat layer exposed Qualified Code(s): L97.322 - Non-pressure chronic ulcer of left ankle with fat layer exposed (2) Tobacco use disorder: CODE(S): F17.200 - Nicotine dependence, unspecified, uncomplicated PLAN: Plan Patient evaluated at the wound healing center. Wound care - Moistened germain covered with gauze/ABD/[place] SAP dressing daily after washing with soap and water. Will order venous and arterial studies. Encouraged patient to stop smoking as it may have deleterious effects on wound healing. Follow up one week.
--- NOTE | 2024-07-21 17:26 | PCM.WC.HP ---
History of Present Illness Date of Service: 07/21/24 Chief Complaint: Left medial foot ulcer, just distal to ankle. History of Wound: 58-year-old male presents with a nonhealing ulcer to his left medial foot, distal to his ankle. This started 5 to 6 weeks ago. He states that it started as a small wound and then got larger. He went to his PCP who started him on Levaquin. Once on the Levaquin he states that the wound is starting to not drain as much and looks better. His PCP is started him on a second round of the Levaquin and referred him to the wound healing center. He denies being diabetic or any medical history. He does smoke 1 to 1-1/2 packs/day for the past 30+ years. Progress of Wound: Left medial foot ulcer with a skin island of granulation tissue present in the center of it. There is pink granulation tissue. He has been on Levaquin for the past 10 days, with improvement in his wound. Will order arterial and venous studies. [facility] Medical History (Updated 07/24/24 @ 23:05 by Jackie Spence NP, EQUITY ANALYST-C) Hemorrhoids Home Medications ?Medication ?Instructions ?Recorded ?Last Taken ?Type etodolac 500 mg tablet 500 mg PO BID #60 tabs 08/06/21 Unknown Rx levofloxacin 500 mg tablet 500 mg PO DAILY 07/21/24 Unknown History Allergy/AdvReac Type Severity Reaction Status Date / Time No Known Allergies Allergy Verified 07/21/24 13:48 Family History Mother Hypertension Father CVA (cerebral vascular accident) Surgical History History of colonoscopy (~11/2018) Social History Smoking Status: Current every day smoker ROS Constitutional Constitutional: Denies chills or fever(s) Eyes Eyes: Reports requires corrective lenses ENT HEENT: Reports none Cardiovascular Cardiovascular: Denies chest pain, dyspnea or edema Respiratory/Chest Respiratory/Chest: Denies dyspnea Gastrointestinal Gastrointestinal: Reports none Genitourinary Genitourinary: Reports none Musculoskeletal Musculoskeletal: Reports back pain Integumentary Integumentary: Reports as per HPI Neurologic Neurologic: Reports none Psychiatric Psychiatric: Reports none Endocrine Endocrinology: Reports none Hematologic/Lymphatic Hematologic/Lymphatic: Reports none Vital Signs Vital Signs Vital Signs: 07/21/24 13:30 Temperature 98.1 F Temperature Source Temporal Pulse Rate 83 Respiratory Rate 20 H Blood Pressure 164/87 H Blood Pressure Mean 112 Blood Pressure Source Monitor Weight Weight: 160 lb 11.834 oz Body Mass Index (BMI) 23.1 Physical Exam Const alert and oriented x3 General Appearance: cooperative HEENT normocephalic Head and Scalp: atraumatic Eyes General Eye: normal appearance of both eyes Neck full ROM Lymph Lymphatic: no lymphedema noted Resp normal respiratory effort, normal air movement and clear to auscultation bilaterally Effort and Inspection: able to speak in complete sentences Cardio regular rate and regular rhythm GI normal to inspection, nondistended, normoactive bowel sounds Back/Spine normal ROM Extremity full ROM and normal capillary refill Skin Wound Narrative: Left medial foot ulcer with a skin island of granulation tissue present in the center of it. There is pink granulation tissue Neuro oriented x3 and CN's II-XII intact bilaterally Psych mental status grossly normal and thought process normal Debridement Note Debridement Note Wound debrided: medial foot ulcer Laterality: Left Wound Grade/Stage: Stage III Type of Debridement: Excisional debridement Anesthesia Used: 5% Lidocaine Gel Depth: Down to and including healthy tissue and in the subcutaneous layer Percentage of wound debrided: 100 Instrument Used: 3mm curette Tissue Removed: nonviable tissue and slough Severity: Fat Layer Exposed Amount of bleeding with debridement: Mild Bleeding Controlled with: Pressure and Compression and gauze Patient tolerated procedure: Patient tolerated procedure well Post-Debridement Measurements and Additional Note: Post-Debridement Measurements/Treatment - Nurse 1 - General Ulcer Assessment Start: 07/21/24 13:30 Freq: Status: Active Protocol: GABRIELLE Activity Type Activity Date Activity User E-sign Co-sign Detail Recorded Client Recorded Date Recorded By Document 07/21/24 13:30 DL [id number] 07/21/24 13:46 DL 07/21/24 13:30 - Today's Visit Information Type of service Initial Visit Arrival Mode Ambulatory Transfer Assistance None Patient Identification Verified (Name & Yes ) Patient Requires Transmission-Based No Precautions Height and Weight Height 5 ft 10 in Weight 160 lb 11.834 oz Weight in Pounds 160.7 lbs Weight Measurement Method Estimated by Patient Body Mass Index (BMI) 23.1 BMI Classification Normal BSA - Tru 1.90 Vital Signs Temperature (97.8 F-99.1 F) 98.1 F Temperature Source Temporal Pulse Rate (60-100) 83 Pulse Location Monitor Respiratory Rate (12-18) 20 H Respiratory rate source Observation Blood Pressure (90/60-120/80) 164/87 H Blood Pressure Mean 112 Source Monitor Pain Scale: 0-10 Numeric Is Patient Pain Free? Yes Lower Extremity Assessment/ Foot Assessment/ Toe Nail Assessment Left -Posterior Tibial Palpable Yes -Posterior Tibial Doppler Multiphasic -Dorsalis Pedis Palpable Yes -Dorsalis Pedis Doppler Multiphasic -Extremity Color Normal -Hair Growth on Legs Yes -Hair Growth on Toes Yes -Temperature of Extremity Warm -Capillary Refill Greater than 3 Seconds -Dependent Rubor No -Blanched when Elevated No -Lipodermatosclerosis No -Other Deformity No -Prior Foot Ulcer No -Charcot Joint No -Prior Amputation No -Thick No -Discolored No -Deformed No -Improper Length & Hygeine No Right -Popliteal Doppler Multiphasic -Posterior Tibial Palpable Yes -Posterior Tibial Doppler Multiphasic -Dorsalis Pedis Palpable Yes -Dorsalis Pedis Doppler Multiphasic -Extremity Color Normal -Hair Growth on Legs Yes -Hair Growth on Toes Yes -Temperature of Extremity Warm -Capillary Refill Greater than 3 Seconds -Dependent Rubor No -Blanched when Elevated No -Lipodermatosclerosis No -Other Deformity No -Prior Foot Ulcer No -Charcot Joint No -Prior Amputation No -Thick No -Discolored No -Deformed No -Improper Length & Hygeine No Neuropathy Assessment Feet - Top Side and Bottom <Entered> (a) Communication Assessment Preferred language Croatian Right Hearing Abillity Normal Left Hearing Abillity Normal Visual Assistive Devices Glasses Teaching Assessment Preferences Verbal,Written Readiness To Learn Good Willingness to Engage in Self Management Med Activies Readiness to Engage in Self Management Med Activities Anxiety Level Calm Cooperation Cooperative Perception Coherent Interest in Health Problem Asks Questions Education Importance Acknowledges Need Does Patient Smoke tobacco or other Yes substances Smoking Status Current every day smoker Is Patient Diabetic No Functional Assessment Recent Decline in Ability to Perform Denies Any Declines Culture/Jehovah'S Witness/Hat Parts Cutter Machine Cultural/Jehovah'S Witness Needs that may affect No Treatment Plan Would you allow our hospital granite worker to No meet you for the purpose of spiritual/ emotional support? Hat Parts Cutter Machine to contact place of congregation No Teaching: Wound Center Dressing Your Wound -Person Taught Patient *Welcome to the Wound Center -Person Taught Patient (a) 1 - + WC - Nurse 1 - General Ulcer Measurement Start: 07/21/24 13:30 Freq: Status: Active Protocol: Activity Type Activity Date Activity User E-sign Co-sign Detail Recorded Client Recorded Date Recorded By Document 07/21/24 13:30 DL [id number] 07/21/24 13:46 DL 07/21/24 13:30 Wound Center Nurse 1 #1 L med heel -Current Size (cm) - Length 1.9 -Current Size (cm) - Width 1.9 -Current Size (cm) - Depth 0.1 -Total Square Cm 3.61 -Photo Taken Yes -Exudate Amt Medium -Exudate Type Serosanguineous -Wound Margin Distinct, Outline Attached -Granulation Amt Medium (34-66%) -Granulation Quality Red -Necrosis Amt Medium (34-66%) -Necrotic Tissue Type Adherent Slough -Structure Exposed N/A -Texture (Estrellita-wound Skin Appearance) Scarring -Moisture (Estrellita-wound Skin Appearance) No Abnormality -Color (Estrellita-wound Skin Appearance) No Abnormality -Temperature (Estrellita-wound Skin No Abnormality Appearance) (Pt Warm) -Tenderness on Palpation (Estrellita-wound No Skin Appearance) -Ulcer Cleansing Soap and Water -Foul Odor after Cleansing No -Anesthetic Used 5% Lidocaine Gel WC - Nurse 2 - General Ulcer CM Notes Start: 07/21/24 13:30 Freq: Status: Active Protocol: Activity Type Activity Date Activity User E-sign Co-sign Detail Recorded Client Recorded Date Recorded By Document 07/21/24 14:54 GM [id number] 07/21/24 15:08 GM 07/21/24 14:54 Wound Center Nurse 2 -Time 14:54 -Correct Patient Yes -Correct Side, Site, Position Yes -Correct Procedure Yes -Procedure Performed Yes -Type of Procedure Debridement -Clinical Debridement Subcutaneous -Tissue Removed Subcutaneous -Post Debridement (cm) - Length 1.8 -Post Debridement (cm) - Width 2.2 -Post Debridement (cm) - Depth 0.1 -Total Square (Post) (cm) 3.96 -Area of Debridement (cm) - Length 1.8 -Area of Debridement (cm) - Width 2.2 -Total Square (Area) (cm) 3.96 -Tunneling No -Undermining/Tunneling No -Circular Undermining No -Wound/Ulcer Outcome Not Healed -Ulcer Cleansing Rinsed/ Irrigated with Saline -Foul Odor after Cleansing No -Bioengineered Tissue No -Bleeding Controlled with Pressure -Treatment Response Procedure Tolerated Well -Debridement - Subq, 1st 20sq cm Yes Pain Scale: 0-10 Numeric Is Patient Pain Free? Yes - Nurse 3 - General Ulcer D/C NN Start: 07/21/24 13:30 Freq: Status: Active Protocol: Activity Type Activity Date Activity User E-sign Co-sign Detail Recorded Client Recorded Date Recorded By Document 07/21/24 15:17 [id number] 07/21/24 15:18 07/21/24 15:17 Wound Care Center Nurse 3 #1 L med heel -Ulcer Cleansing Not Cleansed -Foul Odor after Cleansing No -Primary Dressing Applied Promogran Germain Matter -Primary Dressing Covered/Secured with Dry Gauze & Roll Gauze, Secured with Tape -Promogran Germain Matter 2 Pain Scale: 0-10 Numeric Is Patient Pain Free? Yes WC - Visit Discharge Discharge Condition Stable Ambulatory Status Ambulatory Transportation Private Auto Charges/Coding Visit Charges Office Visits / Consults: [id number] OV L3 Est 20min (25 modifier) Procedures Integumentary 111xxx-113xx: [id number] Coretta subq tissue 20 sq cm/< Assessment/Plan Assessment/Plan (1) Ulcer of left ankle: CODE(S): L97.329 - Non-pressure chronic ulcer of left ankle with unspecified severity QUALIFIERS: Non-pressure ulcer stage: with fat layer exposed Qualified Code(s): L97.322 - Non-pressure chronic ulcer of left ankle with fat layer exposed (2) Tobacco use disorder: CODE(S): F17.200 - Nicotine dependence, unspecified, uncomplicated PLAN: Plan Patient evaluated at the wound healing center. Wound care - Moistened germain covered with gauze/ABD/[place] SAP dressing daily after washing with soap and water. Will order venous and arterial studies. Encouraged patient to stop smoking as it may have deleterious effects on wound healing. Follow up one week.
[2024-07-28 14:48] VITALS: BP 186/86; PULSE 86; RESP 16; TEMP 36.9; BMI 23.1
--- NOTE | 2024-07-28 16:43 | PCM.WC.PN ---
History of Present Illness Date of Service: 07/28/24 Chief Complaint: Left medial foot ulcer, just distal to ankle. History of Wound: 58-year-old male presents with a nonhealing ulcer to his left medial foot, distal to his ankle. This started 5 to 6 weeks ago. He states that it started as a small wound and then got larger. He went to his PCP who started him on Levaquin. Once on the Levaquin he states that the wound is starting to not drain as much and looks better. His PCP is started him on a second round of the Levaquin and referred him to the wound healing center. He denies being diabetic or any medical history. He does smoke 1 to 1-1/2 packs/day for the past 30+ years. Arterial studies were obtained on 07/29/2024. Right SANDER = 1.04. Left SANDER = 1.11. Biphasic and triphasic Doppler waveforms are noted at ankle level on the right. Triphasic Doppler waveforms are noted at ankle level on the left. Pulse-volume recordings appear diminished at digital level bilaterally, but satisfactory at all other levels bilaterally. Resting ankle-brachial indices are normal bilaterally. The right digital-brachial index is normal. The left digital-brachial index is mildly diminished. Arterial flow appears normal at ankle level bilaterally, and at digital level on the right. There is evidence of mild arterial occlusive disease at digital level on the left. Venous studies were obtained 07/29/2024. Deep veins of the lower extremities are bilaterally patent and compressible segmentally. There is no evidence of deep vein thrombosis on either side. Valvular competence appears intact within the proximal deep venous systems bilaterally. The right great saphenous vein appears incompetent below the knee. The left great saphenous vein appears incompetent below the knee. The accessory saphenous vein in the right proximal calf is incompetent. Progress of Wound: Left medial foot ulcer with a skin island of granulation tissue present in the center of it, There is more granulation tissue present and it is now a cluster. Overall, there is improvement in the ulcer. Objective Data Objective Data Vital Signs: Vital Signs Temp Pulse Resp BP 98.4 F 86 16 186/86 H 07/28/24 14:48 07/28/24 14:48 07/28/24 14:48 07/28/24 14:48 Weight: 160 lb 11.834 oz Body Mass Index (BMI) 23.1 Charges/Coding Procedures Integumentary 111xxx-113xx: 96673 Coretta subq tissue 20 sq cm/< Debridement Note Debridement Note Wound debrided: medial foot ulcer Laterality: Left Wound Grade/Stage: Stage III Type of Debridement: Excisional debridement Anesthesia Used: 5% Lidocaine Gel Depth: Down to and including healthy tissue and in the subcutaneous layer Percentage of wound debrided: 100 Instrument Used: 3mm curette Tissue Removed: nonviable tissue and slough Severity: Fat Layer Exposed Amount of bleeding with debridement: Mild Bleeding Controlled with: Pressure and Compression and gauze Patient tolerated procedure: Patient tolerated procedure well Post-Debridement Measurements and Additional Note: Post-Debridement Measurements/Treatment WC - Nurse 1 - General Ulcer Assessment Start: 07/21/24 13:30 Freq: Status: Active Protocol: GABRIELLE Activity Type Activity Date Activity User E-sign Co-sign Detail Recorded Client Recorded Date Recorded By Document 07/21/24 13:30 DL [id number] 07/21/24 13:46 DL Document 07/28/24 14:48 CP [id number] 07/28/24 14:59 CP 07/21/24 07/28/24 13:30 14:48 - Today's Visit Information Type of service Initial Visit Follow-up Visit (Physician/SUPER[employer]OR [employer] ) Arrival Mode Ambulatory Ambulatory Transfer Assistance None Patient Identification Verified (Name & Yes Yes ) Patient Requires Transmission-Based No No Precautions Height and Weight Height 5 ft 10 in Weight 160 lb 11.834 oz Weight in Pounds 160.7 lbs Weight Measurement Method Estimated by Patient Body Mass Index (BMI) 23.1 23.1 BMI Classification Normal Normal BSA - Tru 1.90 Vital Signs Temperature (97.8 F-99.1 F) 98.1 F 98.4 F Temperature Source Temporal Temporal Pulse Rate (60-100) 83 86 Pulse Location Monitor Monitor Respiratory Rate (12-18) 20 H 16 Respiratory rate source Observation Observation Blood Pressure (90/60-120/80) 164/87 H 186/86 H Blood Pressure Mean (mm Hg) 112 119 Source Monitor Monitor Position Sitting Blood Pressure Location Right Arm History Since Last Visit- (Skip if this is Patient's initial visit) Have you changed medications since your No last visit? Any new allergies or adverse reactions No Had a fall/change in ADL's that may No increase risk of falls Signs or symptoms of abuse and/or No neglect since last visit Have you been in the hospital since your No last visit? Has dressing in place as prescribed Yes Has compression in place as prescribed N/A Has offloadiing in place as prescribed N/A Experienced any changes in pain level or No management Pain Scale: 0-10 Numeric Is Patient Pain Free? Yes Yes Lower Extremity Assessment/ Foot Assessment/ Toe Nail Assessment Left -Posterior Tibial Palpable Yes -Posterior Tibial Doppler Multiphasic -Dorsalis Pedis Palpable Yes -Dorsalis Pedis Doppler Multiphasic -Extremity Color Normal -Hair Growth on Legs Yes -Hair Growth on Toes Yes -Temperature of Extremity Warm -Capillary Refill Greater than 3 Seconds -Dependent Rubor No -Blanched when Elevated No -Lipodermatosclerosis No -Other Deformity No -Prior Foot Ulcer No -Charcot Joint No -Prior Amputation No -Thick No -Discolored No -Deformed No -Improper Length & Hygeine No Right -Popliteal Doppler Multiphasic -Posterior Tibial Palpable Yes -Posterior Tibial Doppler Multiphasic -Dorsalis Pedis Palpable Yes -Dorsalis Pedis Doppler Multiphasic -Extremity Color Normal -Hair Growth on Legs Yes -Hair Growth on Toes Yes -Temperature of Extremity Warm -Capillary Refill Greater than 3 Seconds -Dependent Rubor No -Blanched when Elevated No -Lipodermatosclerosis No -Other Deformity No -Prior Foot Ulcer No -Charcot Joint No -Prior Amputation No -Thick No -Discolored No -Deformed No -Improper Length & Hygeine No Neuropathy Assessment Feet - Top Side and Bottom <Entered> (a) Communication Assessment Preferred language Yoruba Right Hearing Abillity Normal Left Hearing Abillity Normal Visual Assistive Devices Glasses Teaching Assessment Preferences Verbal,Written Readiness To Learn Good Willingness to Engage in Self Management Med Activies Readiness to Engage in Self Management Med Activities Anxiety Level Calm Cooperation Cooperative Perception Coherent Interest in Health Problem Asks Questions Education Importance Acknowledges Need Does Patient Smoke tobacco or other Yes substances Smoking Status Current every day smoker Is Patient Diabetic No Functional Assessment Recent Decline in Ability to Perform Denies Any Declines Culture/Church/Supervisor [employer] Cultural/Church Needs that may affect No Treatment Plan Would you allow our hospital rack cleaner to No meet you for the purpose of spiritual/ emotional support? Supervisor [employer] to contact place of pentecostalism No Teaching: Wound Center Dressing Your Wound -Person Taught Patient *Welcome to the Wound Center -Person Taught Patient (a) 1 - + WC - Nurse 1 - General Ulcer Measurement Start: 07/21/24 13:30 Freq: Status: Active Protocol: Activity Type Activity Date Activity User E-sign Co-sign Detail Recorded Client Recorded Date Recorded By Document 07/21/24 13:30 DL [id number] 07/21/24 13:46 DL Document 07/28/24 14:48 CP [id number] 07/28/24 14:59 CP 07/21/24 07/28/24 13:30 14:48 Wound Center Nurse 1 #1 L med heel -Current Size (cm) - Length 1.9 1.5 -Current Size (cm) - Width 1.9 1.5 -Current Size (cm) - Depth 0.1 0.1 -Total Square Cm 3.61 2.25 -Photo Taken Yes No -Epithelialization Small 1-33% -Tunneling No -Undermining/Tunneling No -Exudate Amt Medium Small -Exudate Type Serosanguineous Serous -Wound Margin Distinct, Flat & Intact Outline Attached -Granulation Amt Medium (34-66%) Large (67-100%) -Granulation Quality [place] -Necrosis Amt Medium (34-66%) Small (1-33%) -Necrotic Tissue Type Adherent Slough Adherent Slough -Structure Exposed N/A N/A -Texture (Estrellita-wound Skin Appearance) Scarring No Abnormality -Moisture (Estrellita-wound Skin Appearance) No Abnormality No Abnormality -Color (Estrellita-wound Skin Appearance) No Abnormality No Abnormality -Temperature (Estrellita-wound Skin No Abnormality No Abnormality Appearance) (Pt Warm) (Pt Warm) -Tenderness on Palpation (Estrellita-wound No Skin Appearance) -Ulcer Cleansing Soap and Water Rinsed/ Irrigated with Saline -Foul Odor after Cleansing No No -Anesthetic Used 5% Lidocaine 5% Lidocaine Gel Gel WC - Nurse 2 - General Ulcer CM Notes Start: 07/21/24 13:30 Freq: Status: Active Protocol: Activity Type Activity Date Activity User E-sign Co-sign Detail Recorded Client Recorded Date Recorded By Document 07/21/24 14:54 GM [id number] 07/21/24 15:08 GM Document 07/28/24 15:55 GM [id number] 07/28/24 16:00 07/21/24 07/28/24 14:54 15:55 Wound Center Nurse 2 #1 L med heel -Time 14:54 15:55 -Correct Patient Yes Yes -Correct Side, Site, Position Yes Yes -Correct Procedure Yes Yes -Procedure Performed Yes Yes -Type of Procedure Debridement Debridement -Clinical Debridement Subcutaneous Subcutaneous -Tissue Removed Subcutaneous Subcutaneous -Post Debridement (cm) - Length 1.8 1.8 -Post Debridement (cm) - Width 2.2 1.9 -Post Debridement (cm) - Depth 0.1 0.1 -Total Square (Post) (cm) 3.96 3.42 -Area of Debridement (cm) - Length 1.8 1.8 -Area of Debridement (cm) - Width 2.2 1.9 -Total Square (Area) (cm) 3.96 3.42 -Tunneling No No -Undermining/Tunneling No No -Circular Undermining No No -Wound/Ulcer Outcome Not Healed Not Healed -Ulcer Cleansing Rinsed/ Rinsed/ Irrigated with Irrigated with Saline Saline -Foul Odor after Cleansing No No -Bioengineered Tissue No No -Bleeding Controlled with Pressure Pressure -Treatment Response Procedure Procedure Tolerated Well Tolerated Well -Debridement - Subq, 1st 20sq cm Yes Yes Pain Scale: 0-10 Numeric Is Patient Pain Free? Yes Yes - Nurse 3 - General Ulcer D/C NN Start: 07/21/24 13:30 Freq: Status: Active Protocol: Activity Type Activity Date Activity User E-sign Co-sign Detail Recorded Client Recorded Date Recorded By Document 07/21/24 15:17 GM [id number] 07/21/24 15:18 Document 07/28/24 16:05 DL [id number] 07/28/24 16:07 DL 07/21/24 07/28/24 15:17 16:05 Wound Care Center Nurse 3 #1 L med heel -Ulcer Cleansing Not Cleansed Rinsed/ Irrigated with Saline -Foul Odor after Cleansing No No -Primary Dressing Applied Promogran Germain Matter -Other Dressing Hydrogel today -Primary Dressing Covered/Secured with Dry Gauze & Dry Gauze & Roll Gauze, Roll Gauze, Secured with Secured with Tape Tape -Promogran Germain Matter 2 -Wound Comment(s) Pt to resume Germain at home. Treatment Response Procedure Tolerated Well Pain Scale: 0-10 Numeric Is Patient Pain Free? Yes Yes - Visit Discharge Discharge Condition Stable Stable Ambulatory Status Ambulatory Ambulatory Transportation Private Auto Private Auto Assessment/Plan Assessment/Plan (1) Ulcer of left ankle: CODE(S): L97.329 - Non-pressure chronic ulcer of left ankle with unspecified severity QUALIFIERS: Non-pressure ulcer stage: with fat layer exposed Qualified Code(s): L97.322 - Non-pressure chronic ulcer of left ankle with fat layer exposed (2) Tobacco use disorder: CODE(S): F17.200 - Nicotine dependence, unspecified, uncomplicated PLAN: Plan Patient evaluated at the wound healing center. Wound care - Moistened germain covered with adaptic and topped with gauze/ABD/[place] SAP dressing daily after washing with soap and water. Compression - Tubigrip. He had his vascular studies and we discussed the results. Encouraged patient to stop smoking as it may have deleterious effects on wound healing. Follow up two weeks.
--- NOTE | 2024-07-28 16:43 | PCM.WC.PN ---
History of Present Illness Date of Service: 07/28/24 Chief Complaint: Left medial foot ulcer, just distal to ankle. History of Wound: 58-year-old male presents with a nonhealing ulcer to his left medial foot, distal to his ankle. This started 5 to 6 weeks ago. He states that it started as a small wound and then got larger. He went to his PCP who started him on Levaquin. Once on the Levaquin he states that the wound is starting to not drain as much and looks better. His PCP is started him on a second round of the Levaquin and referred him to the wound healing center. He denies being diabetic or any medical history. He does smoke 1 to 1-1/2 packs/day for the past 30+ years. Arterial studies were obtained on 07/29/2024. Right SANDER = 1.04. Left SANDER = 1.11. Biphasic and triphasic Doppler waveforms are noted at ankle level on the right. Triphasic Doppler waveforms are noted at ankle level on the left. Pulse-volume recordings appear diminished at digital level bilaterally, but satisfactory at all other levels bilaterally. Resting ankle-brachial indices are normal bilaterally. The right digital-brachial index is normal. The left digital-brachial index is mildly diminished. Arterial flow appears normal at ankle level bilaterally, and at digital level on the right. There is evidence of mild arterial occlusive disease at digital level on the left. Venous studies were obtained 07/29/2024. Deep veins of the lower extremities are bilaterally patent and compressible segmentally. There is no evidence of deep vein thrombosis on either side. Valvular competence appears intact within the proximal deep venous systems bilaterally. The right great saphenous vein appears incompetent below the knee. The left great saphenous vein appears incompetent below the knee. The accessory saphenous vein in the right proximal calf is incompetent. Progress of Wound: Left medial foot ulcer with a skin island of granulation tissue present in the center of it, There is more granulation tissue present and it is now a cluster. Overall, there is improvement in the ulcer. Objective Data Objective Data Vital Signs: Vital Signs Temp Pulse Resp BP 98.4 F 86 16 186/86 H 07/28/24 14:48 07/28/24 14:48 07/28/24 14:48 07/28/24 14:48 Weight: 160 lb 11.834 oz Body Mass Index (BMI) 23.1 Charges/Coding Procedures Integumentary 111xxx-113xx: [id number] Coretta subq tissue 20 sq cm/< Debridement Note Debridement Note Wound debrided: medial foot ulcer Laterality: Left Wound Grade/Stage: Stage III Type of Debridement: Excisional debridement Anesthesia Used: 5% Lidocaine Gel Depth: Down to and including healthy tissue and in the subcutaneous layer Percentage of wound debrided: 100 Instrument Used: 3mm curette Tissue Removed: nonviable tissue and slough Severity: Fat Layer Exposed Amount of bleeding with debridement: Mild Bleeding Controlled with: Pressure and Compression and gauze Patient tolerated procedure: Patient tolerated procedure well Post-Debridement Measurements and Additional Note: Post-Debridement Measurements/Treatment WC - Nurse 1 - General Ulcer Assessment Start: 07/21/24 13:30 Freq: Status: Active Protocol: GABRIELLE Activity Type Activity Date Activity User E-sign Co-sign Detail Recorded Client Recorded Date Recorded By Document 07/21/24 13:30 DL [id number] 07/21/24 13:46 DL Document 07/28/24 14:48 CP [id number] 07/28/24 14:59 CP 07/21/24 07/28/24 13:30 14:48 - Today's Visit Information Type of service Initial Visit Follow-up Visit (Physician/PANTRY COOK ) Arrival Mode Ambulatory Ambulatory Transfer Assistance None Patient Identification Verified (Name & Yes Yes ) Patient Requires Transmission-Based No No Precautions Height and Weight Height 5 ft 10 in Weight 160 lb 11.834 oz Weight in Pounds 160.7 lbs Weight Measurement Method Estimated by Patient Body Mass Index (BMI) 23.1 23.1 BMI Classification Normal Normal BSA - Tru 1.90 Vital Signs Temperature (97.8 F-99.1 F) 98.1 F 98.4 F Temperature Source Temporal Temporal Pulse Rate (60-100) 83 86 Pulse Location Monitor Monitor Respiratory Rate (12-18) 20 H 16 Respiratory rate source Observation Observation Blood Pressure (90/60-120/80) 164/87 H 186/86 H Blood Pressure Mean (mm Hg) 112 119 Source Monitor Monitor Position Sitting Blood Pressure Location Right Arm History Since Last Visit- (Skip if this is Patient's initial visit) Have you changed medications since your No last visit? Any new allergies or adverse reactions No Had a fall/change in ADL's that may No increase risk of falls Signs or symptoms of abuse and/or No neglect since last visit Have you been in the hospital since your No last visit? Has dressing in place as prescribed Yes Has compression in place as prescribed N/A Has offloadiing in place as prescribed N/A Experienced any changes in pain level or No management Pain Scale: 0-10 Numeric Is Patient Pain Free? Yes Yes Lower Extremity Assessment/ Foot Assessment/ Toe Nail Assessment Left -Posterior Tibial Palpable Yes -Posterior Tibial Doppler Multiphasic -Dorsalis Pedis Palpable Yes -Dorsalis Pedis Doppler Multiphasic -Extremity Color Normal -Hair Growth on Legs Yes -Hair Growth on Toes Yes -Temperature of Extremity Warm -Capillary Refill Greater than 3 Seconds -Dependent Rubor No -Blanched when Elevated No -Lipodermatosclerosis No -Other Deformity No -Prior Foot Ulcer No -Charcot Joint No -Prior Amputation No -Thick No -Discolored No -Deformed No -Improper Length & Hygeine No Right -Popliteal Doppler Multiphasic -Posterior Tibial Palpable Yes -Posterior Tibial Doppler Multiphasic -Dorsalis Pedis Palpable Yes -Dorsalis Pedis Doppler Multiphasic -Extremity Color Normal -Hair Growth on Legs Yes -Hair Growth on Toes Yes -Temperature of Extremity Warm -Capillary Refill Greater than 3 Seconds -Dependent Rubor No -Blanched when Elevated No -Lipodermatosclerosis No -Other Deformity No -Prior Foot Ulcer No -Charcot Joint No -Prior Amputation No -Thick No -Discolored No -Deformed No -Improper Length & Hygeine No Neuropathy Assessment Feet - Top Side and Bottom <Entered> (a) Communication Assessment Preferred language Kiswahili Right Hearing Abillity Normal Left Hearing Abillity Normal Visual Assistive Devices Glasses Teaching Assessment Preferences Verbal,Written Readiness To Learn Good Willingness to Engage in Self Management Med Activies Readiness to Engage in Self Management Med Activities Anxiety Level Calm Cooperation Cooperative Perception Coherent Interest in Health Problem Asks Questions Education Importance Acknowledges Need Does Patient Smoke tobacco or other Yes substances Smoking Status Current every day smoker Is Patient Diabetic No Functional Assessment Recent Decline in Ability to Perform Denies Any Declines Culture/Zoroastrianism/Sql Programmer Analyst Cultural/Zoroastrianism Needs that may affect No Treatment Plan Would you allow our hospital painting supervisor to No meet you for the purpose of spiritual/ emotional support? Sql Programmer Analyst to contact place of spiritism No Teaching: Wound Center Dressing Your Wound -Person Taught Patient *Welcome to the Wound Center -Person Taught Patient (a) 1 - + WC - Nurse 1 - General Ulcer Measurement Start: 07/21/24 13:30 Freq: Status: Active Protocol: Activity Type Activity Date Activity User E-sign Co-sign Detail Recorded Client Recorded Date Recorded By Document 07/21/24 13:30 DL [id number] 07/21/24 13:46 DL Document 07/28/24 14:48 CP [id number] 07/28/24 14:59 CP 07/21/24 07/28/24 13:30 14:48 Wound Center Nurse 1 #1 L med heel -Current Size (cm) - Length 1.9 1.5 -Current Size (cm) - Width 1.9 1.5 -Current Size (cm) - Depth 0.1 0.1 -Total Square Cm 3.61 2.25 -Photo Taken Yes No -Epithelialization Small 1-33% -Tunneling No -Undermining/Tunneling No -Exudate Amt Medium Small -Exudate Type Serosanguineous Serous -Wound Margin Distinct, Flat & Intact Outline Attached -Granulation Amt Medium (34-66%) Large (67-100%) -Granulation Quality [place] -Necrosis Amt Medium (34-66%) Small (1-33%) -Necrotic Tissue Type Adherent Slough Adherent Slough -Structure Exposed N/A N/A -Texture (Estrellita-wound Skin Appearance) Scarring No Abnormality -Moisture (Estrellita-wound Skin Appearance) No Abnormality No Abnormality -Color (Estrellita-wound Skin Appearance) No Abnormality No Abnormality -Temperature (Estrellita-wound Skin No Abnormality No Abnormality Appearance) (Pt Warm) (Pt Warm) -Tenderness on Palpation (Estrellita-wound No Skin Appearance) -Ulcer Cleansing Soap and Water Rinsed/ Irrigated with Saline -Foul Odor after Cleansing No No -Anesthetic Used 5% Lidocaine 5% Lidocaine Gel Gel WC - Nurse 2 - General Ulcer CM Notes Start: 07/21/24 13:30 Freq: Status: Active Protocol: Activity Type Activity Date Activity User E-sign Co-sign Detail Recorded Client Recorded Date Recorded By Document 07/21/24 14:54 GM [id number] 07/21/24 15:08 GM Document 07/28/24 15:55 GM [id number] 07/28/24 16:00 07/21/24 07/28/24 14:54 15:55 Wound Center Nurse 2 #1 L med heel -Time 14:54 15:55 -Correct Patient Yes Yes -Correct Side, Site, Position Yes Yes -Correct Procedure Yes Yes -Procedure Performed Yes Yes -Type of Procedure Debridement Debridement -Clinical Debridement Subcutaneous Subcutaneous -Tissue Removed Subcutaneous Subcutaneous -Post Debridement (cm) - Length 1.8 1.8 -Post Debridement (cm) - Width 2.2 1.9 -Post Debridement (cm) - Depth 0.1 0.1 -Total Square (Post) (cm) 3.96 3.42 -Area of Debridement (cm) - Length 1.8 1.8 -Area of Debridement (cm) - Width 2.2 1.9 -Total Square (Area) (cm) 3.96 3.42 -Tunneling No No -Undermining/Tunneling No No -Circular Undermining No No -Wound/Ulcer Outcome Not Healed Not Healed -Ulcer Cleansing Rinsed/ Rinsed/ Irrigated with Irrigated with Saline Saline -Foul Odor after Cleansing No No -Bioengineered Tissue No No -Bleeding Controlled with Pressure Pressure -Treatment Response Procedure Procedure Tolerated Well Tolerated Well -Debridement - Subq, 1st 20sq cm Yes Yes Pain Scale: 0-10 Numeric Is Patient Pain Free? Yes Yes - Nurse 3 - General Ulcer D/C NN Start: 07/21/24 13:30 Freq: Status: Active Protocol: Activity Type Activity Date Activity User E-sign Co-sign Detail Recorded Client Recorded Date Recorded By Document 07/21/24 15:17 GM [id number] 07/21/24 15:18 Document 07/28/24 16:05 DL [id number] 07/28/24 16:07 DL 07/21/24 07/28/24 15:17 16:05 Wound Care Center Nurse 3 #1 L med heel -Ulcer Cleansing Not Cleansed Rinsed/ Irrigated with Saline -Foul Odor after Cleansing No No -Primary Dressing Applied Promogran Germain Matter -Other Dressing Hydrogel today -Primary Dressing Covered/Secured with Dry Gauze & Dry Gauze & Roll Gauze, Roll Gauze, Secured with Secured with Tape Tape -Promogran Germain Matter 2 -Wound Comment(s) Pt to resume Germain at home. Treatment Response Procedure Tolerated Well Pain Scale: 0-10 Numeric Is Patient Pain Free? Yes Yes - Visit Discharge Discharge Condition Stable Stable Ambulatory Status Ambulatory Ambulatory Transportation Private Auto Private Auto Assessment/Plan Assessment/Plan (1) Ulcer of left ankle: CODE(S): L97.329 - Non-pressure chronic ulcer of left ankle with unspecified severity QUALIFIERS: Non-pressure ulcer stage: with fat layer exposed Qualified Code(s): L97.322 - Non-pressure chronic ulcer of left ankle with fat layer exposed (2) Tobacco use disorder: CODE(S): F17.200 - Nicotine dependence, unspecified, uncomplicated PLAN: Plan Patient evaluated at the wound healing center. Wound care - Moistened germain covered with adaptic and topped with gauze/ABD/[place] SAP dressing daily after washing with soap and water. Compression - Tubigrip. He had his vascular studies and we discussed the results. Encouraged patient to stop smoking as it may have deleterious effects on wound healing. Follow up two weeks.
--- NOTE | 2024-07-29 13:02 | ART_ITS ---
Reason For Study: LLE Wound Procedure A bilateral lower extremity continuous wave Doppler with analog waveform analysis,segmental pressures,and ankle brachial indexes without exercise. Left Segmental Pressures Left brachial= 178mmHg. Left posterior tibial artery = 197mmHg. Left dorsalis pedis artery = 189mmHg. Left digit = 122 mmHg. The left posterior tibial artery waveforms are triphasic. The left dorsalis pedis waveforms are triphasic. Right Segmental Pressures Right brachial= 178mmHg. Right posterior tibial artery = 186mmHg. Right dorsalis pedis artery = 185mmHg. Right digit = 154 mmHg. The right posterior tibial artery waveforms are biphasic. The right dorsalis pedis waveforms are triphasic. Indices The right ankle brachial index by the posterior tibial artery is 1.04. The right ankle brachial index by the dorsalis pedis is 1.04. The right digital-brachial index is 0.87. The left ankle brachial index by the posterior tibial artery is 1.11. The left ankle brachial index by the dorsalis pedis is 1.06. The left digital-brachial index is 0.69. VL/Lower Ext Art Exam w/o Exercis Interpretation Summary Biphasic and triphasic Doppler waveforms are noted at ankle level on the right. Triphasic Doppler waveforms are noted at ankle level on the left. Pulse-volume recordings appear diminished at digital level bilaterally, but satisfactory at all other levels bilaterally. Resting an kle-brachial indices are normal bilaterally. The right digital-brachial index is normal. The left di gital-brachial index is mildly diminished. Arterial flow appears normal at ankle level bilaterally, and at digital level o n the right. There is evidence of mild arterial occlusive disease at digital level on the left. Ordering Physician: Jackie Spence Referring Physician: Johnny Lau MD Performed By: Marin Walker RVT
--- NOTE | 2024-07-29 13:02 | VDLE_ITS ---
Reason For Study: LLE Wound / Pain RIGHT LEFT CFV is compressible, spontaneous, phasic, CFV is compressible, spontaneous, phasic, competent and demonstrates normal competent, and demonstrates normal augmentation. augmentation. FV is compressible, spontaneous, phasic, FV is compressible, spontaneous, phasic, competent and demonstrates normal competent and demonstrates normal augmentation. augmentation. POP V is compressible, spontaneous, phasic, POP V is compressible, spontaneous, phasic, competent and demonstrates normal competent and demonstrates normal augmentation. augmentation. T/P Trunk is compressible. T/P Trunk is compressible. PTV is compressible. PTV is compressible. RT PerV is compressible. LT PerV is compressible. SFJ is competent and measures 0.32 cm. SFJ is competent and measures 0.32 cm. GSV proximal thigh measures 0.18 x 0.18 cm. GSV proximal thigh measures 0.25 x 0.22 cm. GSV at knee measures 0.13 x 0.14 cm. GSV at knee measures 0.14 x 0.13 cm. GSV above knee is competent. GSV above knee is competent. GSV below knee is INCOMPETENT for greater GSV below knee is INCOMPETENT for greater than 0.5 seconds. than 0.5 seconds. ASV proximal calf is INCOMPETENT for greater SSV mid calf is competent and measures 0.13 x than 0.5 seconds and measures 0.31 cm. 0.14 cm. SSV mid calf is competent and measures 0.16 x 0.17 cm. Procedure Exam performed in department. This is a venous duplex using B-mode, color flow and spectral Doppler. The exam was diagnostic. Patient was scanned in reverse Trendelenburg position during reflux assessment. VL/Venous Duplex US - Roberto Extrem Interpretation Summary Deep veins of the lower extremities are bilaterally patent and compressible seg mentally. There is no evidence of deep vein thrombosis on either side. Valvular competence appears in tact within the proximal deep venous systems bilaterally. The great saphenous veins appear bila terally patent and compressible segmentally. Sapheno-femoral junctions are bilaterally competent . The right great saphenous vein appears competent above the knee. The right great saphenous vein appears incompetent below the knee. The left great saphenous vein appears competent above the knee. The left great saphenous vein appears incompetent below the knee. Small saphenous veins are pa tent and competent bilaterally. The accessory saphenous vein in the right proximal calf is incompe tent. Ordering Physician: Jackie Spence Referring Physician: Salvatore Apodaca Performed By: Marin Walker RVT
== END 2024-07-29 23:59 | disposition home or self-care (01) ==
LOC: WC 13:00
PROVIDERS: PCP Family Medicine; Visit Provider Nurse Practitioner Family
DX: I83.023 Varicose veins of left lower extremity with ulcer of ankle (principal); L97.322 Non-pressure chronic ulcer of left ankle with fat layer exposed; F17.210 Nicotine dependence, cigarettes, uncomplicated; M54.9 Dorsalgia, unspecified; I83.91 Asymptomatic varicose veins of right lower extremity
CPT/HCPCS: 11042; 93923; 93970; 99213; G0463

== ENCOUNTER 2024-08-11 13:55 | Outpatient (RCR) | payer SELFPAY ==
[2024-08-11 14:05] VITALS: BP 173/87; PULSE 84; RESP 18; TEMP 36.1
--- NOTE | 2024-08-11 16:08 | PN.PCM_ITS ---
History of Present Illness Date of Service: 08/11/24 Chief Complaint: Left medial foot ulcer, just distal to ankle. History of Wound: 58-year-old male presents with a nonhealing ulcer to his left medial foot, distal to his ankle. This started 5 to 6 weeks ago. He states that it started as a small wound and then got larger. He went to his PCP who started him on Levaquin. Once on the Levaquin he states that the wound is starting to not drain as much and looks better. His PCP is started him on a second round of the Levaquin and referred him to the wound healing center. He denies being diabetic or any medical history. He does smoke 1 to 1-1/2 packs/day for the past 30+ years. Arterial studies were obtained on 07/29/2024. Right SANDER = 1.04. Left SANDER = 1.11. Biphasic and triphasic Doppler waveforms are noted at ankle level on the right. Triphasic Doppler waveforms are noted at ankle level on the left. Pulse- volume recordings appear diminished at digital level bilaterally, but satisfactory at all other levels bilaterally. Resting ankle-brachial indices are normal bilaterally. The right digital-brachial index is normal. The left digital-brachial index is mildly diminished. Arterial flow appears normal at ankle level bilaterally, and at digital level on the right. There is evidence of mild arterial occlusive disease at digital level on the left. Venous studies were obtained 07/29/2024. Deep veins of the lower extremities are bilaterally patent and compressible segmentally. There is no evidence of deep vein thrombosis on either side. Valvular competence appears intact within the proximal deep venous systems bilaterally. The right great saphenous vein appears incompetent below the knee. The left great saphenous vein appears incompetent below the knee. The accessory saphenous vein in the right proximal calf is incompetent. Progress of Wound: Left medial foot ulcer is now healed. Reviewed his venous studies again to explain the benefit of compression stockings, since he stands and walks all day at his job. Objective Data Objective Data Vital Signs: Vital Signs Temp Pulse Resp BP O2 Del Method 97 F L 84 18 173/87 H Room Air 08/11/24 14:05 08/11/24 14:05 08/11/24 14:05 08/11/24 14:05 08/11/24 14:05 Oxygen Delivery Method Room Air Charges/Coding Visit Charges Office Visits / Consults: 16280 OV L3 Est 20min Physical Exam Const alert and oriented x3 General Appearance: cooperative HEENT normocephalic Head and Scalp: atraumatic Eyes General Eye: normal appearance of both eyes Neck full ROM Lymph Lymphatic: no lymphedema noted Resp normal respiratory effort and normal air movement Effort and Inspection: able to speak in complete sentences Cardio regular rate GI normal to inspection, nondistended, normoactive bowel sounds Back/Spine normal ROM Extremity full ROM and normal capillary refill Skin Wound Narrative: Left medial leg ulcer is healed. Neuro oriented x3 and CN's II-XII intact bilaterally Psych mental status grossly normal and thought process normal Debridement Note Debridement Note No debridement was completed: No debridement was completed today Post-Debridement Measurements and Additional Note: Post-Debridement Measurements/Treatment - Nurse 1 - General Ulcer Assessment Start: 08/11/24 14:03 Freq: Status: Active Protocol: GABRIELLE Activity Type Activity Date Activity User E-sign Co-sign Detail Recorded Client Recorded Date Recorded By Document 08/11/24 14:05 VT [id number] 08/11/24 14:19 VT 08/11/24 14:05 WC - Today's Visit Information Type of service Follow-up Visit (Physician/CONSOLE [employer]ER ) Arrival Mode Ambulatory Accompanied by Patient Identification Verified (Name & Yes ) Safety Precautions Fall Prevention Vital Signs Temperature (97.8 F-99.1 F) 97 F L Temperature Source Temporal Pulse Rate (60-100) 84 Pulse Location Monitor Respiratory Rate (12-18) 18 Respiratory rate source Observation Oxygen Delivery Method Room Air Blood Pressure (90/60-120/80) 173/87 H Blood Pressure Mean (mm Hg) 115 Source Monitor Position Sitting Blood Pressure Location Right Arm History Since Last Visit- (Skip if this is Patient's initial visit) Has dressing in place as prescribed Yes Has compression in place as prescribed Yes Has offloadiing in place as prescribed Yes Experienced any changes in pain level or Yes management Left Footwear Regular Shoe Right Footwear Regular Shoe Pain Scale: 0-10 Numeric Is Patient Pain Free? Yes [facility] Nurse 1 - General Ulcer Measurement Start: 08/11/24 14:03 Freq: Status: Active Protocol: Activity Type Activity Date Activity User E-sign Co-sign Detail Recorded Client Recorded Date Recorded By Document 08/11/24 14:05 VT [id number] 08/11/24 14:19 VT 08/11/24 14:05 Wound Center Nurse 1 #1 L med heel -Current Size (cm) - Length 0.1 -Current Size (cm) - Width 0.1 -Current Size (cm) - Depth 0.1 -Total Square Cm 0.01 -Date of Last Picture (Recall this 08/11/24 field) -Photo Taken Yes -Tunneling No -Undermining/Tunneling No -Circular Undermining No -Exudate Amt None Present -Wound Margin Flat & Intact -Granulation Amt None Present (0 %) -Slough/Fibrin No -Necrosis Amt None Present (0 %) -Texture (Estrellita-wound Skin Appearance) Assessed -Moisture (Estrellita-wound Skin Appearance) Assessed -Color (Estrellita-wound Skin Appearance) Assessed -Temperature (Estrellita-wound Skin No Abnormality Appearance) (Pt Warm) -Tenderness on Palpation (Estrellita-wound No Skin Appearance) -Ulcer Cleansing Soap and Water -Foul Odor after Cleansing No -Anesthetic Used 5% Lidocaine Gel Lower Limb Edema Present NA - Nurse 2 - General Ulcer CM Notes Start: 08/11/24 14:03 Freq: Status: Active Protocol: Activity Type Activity Date Activity User E-sign Co-sign Detail Recorded Client Recorded Date Recorded By Document 08/11/24 14:41 [id number] 08/11/24 14:42 08/11/24 14:41 Wound Center Nurse 2 #1 L med heel -Time 14:42 -Correct Patient Yes -Correct Side, Site, Position Yes -Wound/Ulcer Outcome Healed- Epithelialized Pain Scale: 0-10 Numeric Is Patient Pain Free? Yes - Nurse 3 - General Ulcer D/C NN Start: 08/11/24 14:03 Freq: Status: Active Protocol: Activity Type Activity Date Activity User E-sign Co-sign Detail Recorded Client Recorded Date Recorded By Document 08/11/24 14:45 [id number] 08/11/24 14:45 08/11/24 14:45 Is Patient Pain Free? Yes - Visit Discharge Discharge Condition Stable Ambulatory Status Ambulatory Transportation Private Auto Assessment/Plan Assessment/Plan (1) Ulcer of left ankle: CODE(S): L97.329 - Non-pressure chronic ulcer of left ankle with unspecified severity QUALIFIERS: Non-pressure ulcer stage: with fat layer exposed Qualified Code(s): L97.322 - Non-pressure chronic ulcer of left ankle with fat layer exposed (2) Tobacco use disorder: CODE(S): F17.200 - Nicotine dependence, unspecified, uncomplicated PLAN: Plan Patient evaluated at the wound healing center. His ulcer is healed today. Encouraged him to massage unscented lotion 1-2 times per day to help moisturize the area and help soften the scarring. Compression - Compression stockings 30 mmHg. Gave him a prescription to go to [facility] to be fitted. Explained the benefit of wearing compression while on his feet all day at work. Encouraged patient to stop smoking. Follow up as needed.
--- NOTE | 2024-08-12 09:37 | WC ---
PHOTO 08/11/[address] [facility]
--- NOTE | 2024-08-12 09:43 | WC ---
PHOTO 08/11/24 [facility]
--- NOTE | 2024-08-12 10:05 | WC ---
PHOTO 08/11/24 [facility]
== END 2024-08-12 14:54 | disposition home or self-care (01) ==
LOC: WC 13:55
PROVIDERS: PCP Family Medicine; Referring Provider Family Medicine; Visit Provider Nurse Practitioner Family
DX: Z09 Encounter for follow-up examination after completed treatment for conditions other than malignant neoplasm (principal); F17.200 Nicotine dependence, unspecified, uncomplicated
CPT/HCPCS: 99213; G0463